=== PATIENT | female | born 1955 | race Caucasian/White ===

== ENCOUNTER 2016-06-03 17:05 | Emergency (ER) | payer OTHER ==
[~2016-06-03] VITALS: Ht 165.1 cm; Wt 54.0 kg
[~2016-06-03 17:05] MED LIST: AMLO5TAB96 PO; MACR100C PO; OMEP20TA PO; ZOCO5TAB PO; ZYRT10TA12 PO
[2016-06-03 17:17] VITALS: BP 138/82; PULSE 84; RESP 16; TEMP 98.3; O2SAT 98
--- NOTE | 2016-06-03 18:47 | RADHPO ---
EXAM DATE/TIME: 06/03/2016 18:33 [facility] COMPARISON: CHEST PA & LAT, August 21, 2012, 14:37. INDICATIONS : Right chest pain, difficulty breathing for 1 month MEDICAL HISTORY : None. SURGICAL HISTORY : None. ENCOUNTER: Initial ACUITY: 1 month PAIN SCORE: 6/10 LOCATION: Right chest FINDINGS: PA and lateral views of the chest demonstrate the lungs to be symmetrically aerated without evidence of mass, infiltrate or effusion. The cardiomediastinal contours are unremarkable. Osseous structure s are intact. CONCLUSION: No acute disease. Kai Yancey MD on June 03, 2016 at 18:45 Board Certified Radiologist. This report was verified electronically.
[2016-06-03] MEDS ORDERED: AMLO5TAB2 PO (18:49)
[2016-06-03] MEDS ORDERED: CETI10 PO (18:49)
[2016-06-03] MEDS ORDERED: MELO-1 PO (18:49)
[2016-06-03] MEDS ORDERED: SERT-132 PO (18:49)
[2016-06-03] MEDS ORDERED: OMEP40CA2 PO (18:49)
[2016-06-03] MEDS ORDERED: LOSA25TA PO (18:49)
[2016-06-03] MEDS ORDERED: SIMV40TA PO (18:49)
[2016-06-03] MEDS ORDERED: VENTAER INH (19:02)
[2016-06-03] MEDS ORDERED: PRED-503 PO (19:02)
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
== END 2016-06-03 20:59 | disposition home or self-care (01) ==
LOC: PHEFT 17:05
DX: R07.9 Chest pain, unspecified (principal); I10 Essential (primary) hypertension; E78.5 Hyperlipidemia, unspecified; F17.200 Nicotine dependence, unspecified, uncomplicated; Z88.5 Allergy status to narcotic agent; Z88.6 Allergy status to analgesic agent; Z79.899 Other long term (current) drug therapy
CPT/HCPCS: 71020; 99284

== ENCOUNTER 2016-09-14 19:21 | Emergency (ER) | payer OTHER ==
[~2016-09-14] VITALS: Ht 165.1 cm; Wt 55.0 kg
[~2016-09-14 19:21] MED LIST changes: +AMLO5TAB2 PO; -AMLO5TAB96 PO; +CETI10 PO; +LOSA25TA PO; -MACR100C PO; +MELO-1 PO; -OMEP20TA PO; +OMEP40CA2 PO; +PRED-503 PO; +SERT-132 PO; +SIMV40TA PO; +VENTAER INH; -ZOCO5TAB PO; -ZYRT10TA12 PO
[2016-09-14 19:26] VITALS: BP 143/78; PULSE 92; RESP 16; TEMP 98.5; O2SAT 99
--- NOTE | 2016-09-14 20:51 | PD ---
HPI Chief Complaint: Back/ Neck Pain or Injury Time Seen by Provider: 19:38 Travel History International Travel<30 days: No Contact w/Intl Traveler<30days: No Traveled to known affect area: No History of Present Illness HPI 60-year-old female complains of right flank pain remains abdominal pain. Patient states that the pain started about 4 months ago. Patient states the pain constant pain burning pain localized to right flank and right side abdomen. Patient denies any pain radiation. Patient denies any headache. Patient denies any chest pain or shortness of breath. Patient denies any nausea vomiting diarrhea. Patient denies any dysuria frequency. Patient denies any fever chills. Patient status post hysterectomy. Patient states that she drinks alcohol daily. Patient is a smoker. On a scale of 1-10 the pain is an 8. PFSH Past Medical History Asthma: Yes Depression: Yes High Cholesterol: Yes Diminished Hearing: No GERD: Yes Hypertension: Yes Immunizations Current: Yes Tetanus Vaccination: Unknown Influenza Vaccination: Yes Menopausal: Yes Past Surgical History Hysterectomy: Yes Tonsillectomy: Yes Social History Alcohol Use: Yes (2 beers daily) Tobacco Use: Yes (1.5 PPD) Substance Use: No Allergies-Medications (Allergen,Severity, Reaction): Coded Allergies: Aspirin (Verified Allergy, Severe, vomiting, stomach pain, 06/03/16) Vicodin (Verified Allergy, Intermediate, 06/03/16) Darvocet-N 100 (Verified Allergy, Unknown, 06/03/16) Percocet (Verified Adverse Reaction, Severe, VOMITING, 06/03/16) Percodan (Verified Adverse Reaction, Severe, VOMITING, 06/03/16) Ultram (Verified Adverse Reaction, Severe, VOMITING, 06/03/16) Reported Meds & Prescriptions Reported Meds & Active Scripts Active Ventolin Hfa 18 GM Inh (Albuterol Sulfate) 90 Mcg/Act Aer 2 Puff INH Q4-6H PRN Reported Simvastatin 40 Mg Tab 40 Mg PO HS Amlodipine (Amlodipine Besylate) 5 Mg Tab 5 Mg PO DAILY Meloxicam 15 Mg Tab 15 Mg PO DAILY Losartan (Losartan Potassium) 25 Mg Tab 25 Mg PO DAILY Sertraline (Sertraline HCl) 50 Mg Tab 50 Mg PO DAILY Cetirizine (Cetirizine HCl) 10 Mg Tab 10 Mg PO DAILY Omeprazole 40 Mg Cap 40 Mg PO DAILY Review of Systems General / Constitutional: No: Fever Eyes: No: Visual changes HENT: No: Headaches Cardiovascular: No: Chest Pain or Discomfort Respiratory: No: Shortness of Breath Gastrointestinal: Positive: Abdominal Pain Genitourinary: No: Dysuria Musculoskeletal: No: Pain Skin: No Rash Neurologic: No: Weakness Psychiatric: No: Depression Endocrine: No: Polydipsia Hematologic/Lymphatic: No: Easy Bruising Physical Exam Narrative GENERAL: Well-nourished, well-developed patient. SKIN: Focused skin assessment warm/dry. HEAD: Normocephalic. EYES: No scleral icterus. No injection or drainage. NECK: Supple, trachea midline. No JVD or lymphadenopathy. CARDIOVASCULAR: Regular rate and rhythm without murmurs, gallops, or rubs. RESPIRATORY: Breath sounds equal bilaterally. No accessory muscle use. GASTROINTESTINAL: Abdomen soft, nondistended. Patient has no tenderness on palpation on the abdomen including right upper quadrant right low quadrant or right flank area. No redness no heat no rash noted. MUSCULOSKELETAL: No cyanosis, or edema. BACK: Nontender without obvious deformity. No CVA tenderness. Neurologic exam normal. Data Data Last Documented VS Vital Signs Date Time Temp Pulse Resp B/P Pulse Ox O2 Delivery O2 Flow Rate FiO2 09/14/16 22:40 80 20 150/96 98 Room Air 09/14/16 19:26 98.5 Orders Complete Blood Count With Diff (09/14/16 20:46) Comprehensive Metabolic Panel (09/14/16 20:46) Lipase (09/14/16 20:46) Prothrombin Time / Inr (Pt) (09/14/16 20:46) Act Partial Throm Time (Ptt) (09/14/16 20:46) Urinalysis - C+S If Indicated (09/14/16 20:46) Ct Abd/Pel W Iv Contrast(Rout) (09/14/16 20:46) Iv Access Insert/Monitor (09/14/16 20:46) Iohexol 350 Inj (Omnipaque 350 Inj) (09/14/16 22:53) Labs Laboratory Tests Test 09/14/16 21:00 White Blood Count 7.1 TH/MM3 Red Blood Count 4.09 MIL/MM3 Hemoglobin 12.5 GM/DL Hematocrit 37.8 % Mean Corpuscular Volume 92.5 FL Mean Corpuscular Hemoglobin 30.6 PG Mean Corpuscular Hemoglobin 33.0 % Concent Red Cell Distribution Width 12.4 % Platelet Count 314 TH/MM3 Mean Platelet Volume 8.2 FL Neutrophils (%) (Auto) 63.1 % Lymphocytes (%) (Auto) 27.1 % Monocytes (%) (Auto) 7.5 % Eosinophils (%) (Auto) 0.9 % Basophils (%) (Auto) 1.4 % Neutrophils # (Auto) 4.5 TH/MM3 Lymphocytes # (Auto) 1.9 TH/MM3 Monocytes # (Auto) 0.5 TH/MM3 Eosinophils # (Auto) 0.1 TH/MM3 Basophils # (Auto) 0.1 TH/MM3 CBC Comment DIFF FINAL Differential Comment Prothrombin Time 10.7 SEC Prothromb Time International 1.0 RATIO Ratio Activated Partial 25.3 SEC Thromboplast Time Urine Color YELLOW Urine Turbidity CLEAR Urine pH 5.5 Urine Specific [place] 1.016 Urine Protein NEG mg/dL Urine Glucose (UA) NEG mg/dL Urine Ketones NEG mg/dL Urine Occult Blood NEG Urine Nitrite NEG Urine Bilirubin NEG Urine Leukocyte Esterase TRACE Urine RBC 0-3 /hpf Urine WBC 0-2 /hpf Urine Squamous Epithelial 0-5 /hpf Cells Microscopic Urinalysis Comment CULT NOT INDICATED Sodium Level 138 MEQ/L Potassium Level 3.9 MEQ/L Chloride Level 107 MEQ/L Carbon Dioxide Level 23.1 MEQ/L Anion Gap 8 MEQ/L Blood Urea Nitrogen 15 MG/DL Creatinine 0.57 MG/DL Estimat Glomerular Filtration 107 ML/MIN Rate Random Glucose 91 MG/DL Calcium Level 9.1 MG/DL Total Bilirubin 0.3 MG/DL Aspartate Amino Transf 13 U/L (AST/SGOT) Alanine Aminotransferase 16 U/L (ALT/SGPT) Alkaline Phosphatase 62 U/L Total Protein 7.0 GM/DL Albumin 3.7 GM/DL Lipase 244 U/L [facility] Medical Decision Making Medical Screen Exam Complete: Yes Emergency Medical Condition: Yes Interpretation(s) 22:05 PM. CBC within normal limit. CMP within normal limit. UA is negative. 23:29 PM. Last Impressions Abdomen/Pelvis CT 09/14/162045 Signed Impressions: Service Date/Time: Wednesday, September 14, 2016 22:34 - CONCLUSION: 1. Nonspecific gastric wall thickening. Nonemergent direct visualization with endoscopy recommended. 2. No other acute abnormalities are demonstrated. Atherosclerotic aorta and degenerative changes of the spine and hips are again noted. Wojciech Hicks MD Differential Diagnosis Differential diagnosis including musculoskeletal, colitis, cholecystitis, nephrolithiasis, pyelonephritis, neuralgia. Narrative Course 60-year-old female with right flank pain and right-sided abdominal pain. Patient states the pain started 4 months ago and has been persistent since then. Diagnosis Primary Impression: Abdominal pain Qualified Code: R10.11 - Right upper quadrant abdominal pain Patient Instructions: General Instructions Additional Instructions: Tylenol as needed for pain. Follow-up with personal physician and GI specialist. Return if worse. Med/Other Pt SpecificInfo: No Change to Meds Disposition: 01 DISCHARGE HOME Condition: Stable Milton Candelaria MD Sep 14, 2016 20:51
[2016-09-14 21:13] LABS: BLOOD, URINE NEG (NEG); GLUCOSE,URINE NEG (NEG); KETONE, URINE NEG (NEG); NITRITE,URINE NEG (NEG); PH, URINE 5.5 (5.0-8.5)
[2016-09-14 21:16] LABS: URINE COLOR YELLOW (YELLW/STRAW)
[2016-09-14 21:17] LABS: RBC, URINE 0-3 /hpf (0-3); WBC, URINE 0-2 /hpf (0-5)
[2016-09-14 21:18] LABS: COMMENT (UR) CULT NOT INDICATED; CULTURE IF INDICATED CULT NOT INDICATED; SQUAMOUS EPITHELIAL CELL URINE 0-5 /hpf (0-5)
[2016-09-14 21:34] LABS: CHLORIDE 107 MEQ/L (98-107); POTASSIUM 3.9 MEQ/L (3.5-5.1); SODIUM (NA) 138 MEQ/L (136-145)
[2016-09-14 21:35] LABS: AUTOMATED NEUTROPHIL # 4.5 TH/MM3 (1.8-7.7); BASOPHIL # 0.1 TH/MM3 (0-0.2); BASOPHIL % 1.4 % (0.0-2.0); EOSINOPHIL # 0.1 TH/MM3 (0-0.4); EOSINOPHIL % 0.9 % (0.0-4.0); HEMATOCRIT 37.8 % (35.0-46.0); HEMO FLAGS DIFF FINAL; LYMPH % 27.1 % (9.0-44.0); LYMPHOCYTE # 1.9 TH/MM3 (1.0-4.8); MEAN CELL VOLUME 92.5 FL (80.0-100.0); MEAN CORPUSCULAR HEMOGLOBIN 30.6 PG (27.0-34.0); MONO % 7.5 % (0.0-8.0); NEUT % 63.1 % (16.0-70.0); PLATELET COUNT 314 TH/MM3 (150-450); RED BLOOD COUNT 4.09 MIL/MM3 (4.00-5.30); RED CELL DISTRIBUTION WIDTH 12.4 % (11.6-17.2); WHITE BLOOD COUNT 7.1 TH/MM3 (4.0-11.0)
[2016-09-14 21:38] LABS: ANION GAP 8 MEQ/L (5-15); BICARBONATE 23.1 MEQ/L (21.0-32.0); BLOOD UREA NITROGEN 15 MG/DL (7-18)
[2016-09-14 21:41] LABS: ALT (GPT) 16 U/L (10-53); AST (GOT) 13 U/L (15-37); GLOMERULAR FILTRATION RATE 107 ML/MIN (>89)
[2016-09-14 21:43] LABS: TOTAL BILIRUBIN ADULT 0.3 MG/DL (0.2-1.0)
[2016-09-14 21:44] LABS: ALKALINE PHOSPHATASE 62 U/L (45-117)
[2016-09-14 21:45] LABS: APTT (PATIENT) 25.3 SEC (24.3-30.1); PROTHROMBIN TIME - PATIENT 10.7 SEC (9.8-11.6)
[2016-09-14 22:40] VITALS: BP 150/96; PULSE 80; RESP 20; O2SAT 98
[2016-09-14] MEDS ORDERED: IOHEXOL 350 MG/ML 10 ML VIAL (for RAD DIAG) IV ONE (22:53)
--- NOTE | 2016-09-14 23:13 | RADRPT ---
EXAM DATE/TIME: 09/14/2016 22:34 [facility] COMPARISON: CT ABDOMEN & PELVIS W/O CONTRAST, January 03, 2014, 23:07. CT ABDOMEN & PELVIS W CONTRAST, November 29, 2012, 12:24. INDICATIONS : Right flank pain. IV CONTRAST: 100 cc Omnipaque 350 (iohexol) IV ORAL CONTRAST: No oral contrast ingested. RADIATION DOSE: 5.63 CTDIvol (mGy) MEDICAL HISTORY : Gastroesophageal reflux disease. Hypertension. SURGICAL HISTORY : Hysterectomy. ENCOUNTER: Initial ACUITY: 4 - 6 months PAIN SCALE: 8/10 LOCATION: Right flank TECHNIQUE: Volumetric scanning of the abdomen and pelvis was performed. Using automated exposure control and ad justment of the mA and/or kV according to patient size, radiation dose was kept as low as reasonably achievable to obtain optimal diagnostic quality images. DICOM format image data is available electro nically for review and comparison. FINDINGS: LOWER LUNGS: The visualized lower lungs are clear. LIVER: Homogeneous density without lesion. There is no dilation of the biliary tree. No calcified gallston es. SPLEEN: Normal size without lesion. PANCREAS: Within normal limits. KIDNEYS: Normal in size and shape. There is no mass, stone or hydronephrosis. ADRENAL GLANDS: Within normal limits. VASCULAR: There is atherosclerosis of the abdominal aorta. No aneurysm. BOWEL/MESENTERY: Marked gastric wall thickening seen. No perceptible acute inflammatory changes. Small and large bowel within normal limits. ABDOMINAL WALL: Within normal limits. RETROPERITONEUM: There is no lymphadenopathy. BLADDER: No wall thickening or mass. REPRODUCTIVE: Within normal limits. INGUINAL: There is no lymphadenopathy or hernia. MUSCULOSKELETAL: No acute bony abnormality demonstrated. There are degenerative changes of the spine and both hips. CONCLUSION: 1. Nonspecific gastric wall thickening. Nonemergent direct visualization with endoscopy recommended. 2. No other acute abnormalities are demonstrated. Atherosclerotic aorta and degenerative changes of t he spine and hips are again noted. Wojciech Hicks MD on September 14, 2016 at 23:08 Board Certified Radiologist. This report was verified electronically.
[2016-09-14 23:41] VITALS: BP 145/88
== END 2016-09-14 23:41 | disposition home or self-care (01) ==
LOC: PHEFT 19:21
DX: R10.11 Right upper quadrant pain (principal); I10 Essential (primary) hypertension; E78.00 Pure hypercholesterolemia, unspecified; F17.200 Nicotine dependence, unspecified, uncomplicated; Z87.09 Personal history of other diseases of the respiratory system; Z86.59 Personal history of other mental and behavioral disorders; Z87.19 Personal history of other diseases of the digestive system
CPT/HCPCS: 74177; 80053; 81001; 83690; 85025; 85610; 85730; 99285; Q9967

== ENCOUNTER 2017-08-16 12:42 | Inpatient (IN) | payer OTHER ==
[2017-08-16] VITALS (9 sets, daily range): BP systolic 124–143; BP diastolic 68–83; PULSE 90–105; RESP 16–20; TEMP 98.7–101; O2SAT 96–99
[~2017-08-16 12:42] MED LIST changes: -MELO-1 PO; +MELO15TA20 PO; -PRED-503 PO
[2017-08-16] MEDS ORDERED: RANI300T PO (13:30)
[2017-08-16] MEDS ORDERED: OMEGCAP PO (13:30)
[2017-08-16] MEDS ORDERED: MULT-65 PO (13:30)
--- NOTE | 2017-08-16 14:08 | PD ---
HPI Chief Complaint: Headache Time Seen by Provider: 13:55 Travel History International Travel<30 days: No Contact w/Intl Traveler<30days: No Traveled to known affect area: No History of Present Illness HPI This 61-year-old female says she has not been feeling well since yesterday. She woke up with a headache. She says she is aching all over. She has a slight cough. She has a chronic cough and is a smoker. She has not had dysuria. There is been no vomiting or diarrhea. She says that all of her joints are aching. The headache she is having is fairly diffuse. She is not prone to headaches. She is not aware of fever. PFSH Past Medical History Arthritis: Yes Asthma: Yes Depression: Yes High Cholesterol: Yes Diminished Hearing: No GERD: Yes Hypertension: Yes Immunizations Current: Yes Influenza Vaccination: Yes ?: Not Menopausal: Yes Past Surgical History Hysterectomy: Yes Tonsillectomy: Yes Social History Alcohol Use: Yes (6 BEERS DAILY) Tobacco Use: Yes (1.5 PPD) Substance Use: No Allergies-Medications (Allergen,Severity, Reaction): Coded Allergies: aspirin (Verified Allergy, Severe, vomiting, stomach pain, 08/16/17) hydrocodone (Verified Allergy, Intermediate, 08/16/17) propoxyphene (Verified Allergy, Unknown, 08/16/17) acetaminophen (Verified Adverse Reaction, Severe, VOMITING, 08/16/17) oxycodone (Verified Adverse Reaction, Severe, VOMITING, 08/16/17) tramadol (Verified Adverse Reaction, Severe, VOMITING, 08/16/17) Reported Meds & Prescriptions Reported Meds & Active Scripts Active Ventolin Hfa 18 GM Inh (Albuterol Sulfate) 90 Mcg/Act Aer 2 Puff INH Q4-6H PRN Reported Ranitidine (Ranitidine HCl) 300 Mg Tab 300 Mg PO HS Multi-Vitamin Daily (Multiple Vitamin) 1 Tab Tab 1 Tab PO DAILY [place]-3 Fish Oil/Vitamin (Fish Oil-Cholecalciferol) 1,000-1,000 Mg Cap 1 Cap PO DAILY Simvastatin 40 Mg Tab 40 Mg PO HS Amlodipine (Amlodipine Besylate) 5 Mg Tab 5 Mg PO DAILY Meloxicam 15 Mg Tab 15 Mg PO DAILY Losartan (Losartan Potassium) 25 Mg Tab 25 Mg PO DAILY Sertraline (Sertraline HCl) 50 Mg Tab 100 Mg PO DAILY Cetirizine (Cetirizine HCl) 10 Mg Tab 10 Mg PO DAILY Omeprazole 40 Mg Cap 40 Mg PO DAILY Review of Systems Except as stated in HPI: all other systems reviewed are Neg General / Constitutional: No: Fever Eyes: No: Diploplia HENT: No: Headaches Cardiovascular: No: Chest Pain or Discomfort, Palpitations Respiratory: Positive: Cough, No: Shortness of Breath, Wheezing Gastrointestinal: No: Nausea, Vomiting Genitourinary: No: Urgency, Frequency Musculoskeletal: Positive: Myalgias, Arthralgias Skin: No Rash Neurologic: Positive: Weakness Psychiatric: No: Anxiety, Depression Endocrine: No: Heat Intolerance, Cold Intolerance Hematologic/Lymphatic: No: Easy Bruising Physical Exam Narrative GENERAL: Thin female complaining of pain. Her temp is 101 SKIN: Focused skin assessment warm/dry. HEAD: Atraumatic. Normocephalic. EYES: Pupils equal and round. No scleral icterus. No injection or drainage. ENT: No nasal bleeding or discharge. Mucous membranes pink and moist. NECK: Trachea midline. No JVD. Her neck is supple. She is able to put her chin on her chest without inducing any pain CARDIOVASCULAR: Regular rate and rhythm. No murmur appreciated. RESPIRATORY: No accessory muscle use. There are scattered rhonchi. Breath sounds equal bilaterally. GASTROINTESTINAL: Abdomen soft, non-tender, nondistended. Hepatic and splenic margins not palpable. MUSCULOSKELETAL: No obvious deformities. No clubbing. No cyanosis. No edema. NEUROLOGICAL: Awake and alert. No obvious cranial nerve deficits. Motor grossly within normal limits. Normal speech. PSYCHIATRIC: Appropriate mood and affect; insight and judgment normal. Data Data Last Documented VS Vital Signs Date Time Temp Pulse Resp B/P (MAP) Pulse Ox O2 Delivery O2 Flow Rate FiO2 08/16/17 14:37 18 97 Room Air 08/16/17 14:36 101.0 102 Orders Orders Sepsis Workup Initiated (08/16/17 ) Complete Blood Count With Diff (08/16/17 14:03) Comprehensive Metabolic Panel (08/16/17 14:03) Prothrombin Time / Inr (Pt) (08/16/17 14:03) Act Partial Throm Time (Ptt) (08/16/17 14:03) Lactic Acid Sepsis Protocol (08/16/17 14:03) Urinalysis - C+S If Indicated (08/16/17 14:03) Influenzae A/B Antigen (08/16/17 14:03) Blood Culture (08/16/17 14:03) Chest, Single Ap (08/16/17 14:03) Blood Glucose (08/16/17 14:03) Ecg Monitoring (08/16/17 14:03) Iv Access Insert/Monitor (08/16/17 14:03) Oximetry (08/16/17 14:03) Oxygen Administration (08/16/17 14:03) Acetaminophen (Tylenol) (08/16/17 14:15) Sodium Chlor 0.9% 1000 Ml Inj (Ns 1000 M (08/16/17 14:15) Ct Brain W/O Iv Contrast(Rout) (08/16/17 ) Labs Laboratory Tests Test 08/16/17 14:10 08/16/17 14:15 08/16/17 14:20 MDM Medical Decision Making Medical Screen Exam Complete: Yes Emergency Medical Condition: Yes Medical Record Reviewed: Yes Differential Diagnosis Differential includes pneumonia, UTI, sepsis Narrative Course Workup has been ordered. Acetaminophen as indicated as an allergy but this patient says she is not allergic to acetaminophen in fact she takes it periodically. Chest x-ray shows a patchy opacity in the left upper lung field consistent with possible pneumonia. It is recommended that the patient does not have symptoms of pneumonia that CT could be helpful. Patient does have fever and cough consistent with pneumonia Sepsis Criteria SIRS Criteria (2 or more): Temp > 100.9 or < 96.8, Heart rate over 90 Sepsis Criteria (SIRS+source): Infect source susp/known Diagnosis Primary Impression: Pneumonia Chris Morales MD Aug 16, 2017 14:08
[2017-08-16] MEDS ORDERED: ACETAMINOPHEN 325 MG TAB PO ONE (14:15)
[2017-08-16] MEDS ORDERED: SODIUM CHLOR 0.9% 1000 ML INJ 1,000 ML IV ONE (14:15)
--- NOTE | 2017-08-16 14:48 | RADRPT ---
EXAM DATE: 08/16/2017 2:41 PM EDT AGE/SEX: 61 years / Female INDICATIONS: Short of breath and cough CLINICAL DATA: This is the patient's initial encounter. Patient reports that signs and symptoms have been present for 2 days and indicates a pain score of 3/10. MEDICAL/SURGICAL HISTORY: Hypertension. Asthma. Gastroesophageal reflux disease. None. COMPARISON: [facility], CHEST SINGLE AP, 11/29/2012. . FINDINGS: There is patchy opacity within the left upper lung field consistent with possible pneumonia. Clinical correlation is recommended. If the patient has no symptoms suggestive of pneumonia CT of the chest m ay be helpful for further evaluation. The heart is normal. The pulmonary vascular pattern is also nor mal. The right lung is clear. CONCLUSION: Patchy opacity within the left upper lung field consistent with possible pneumonia. Clinical correlat ion is recommended. If the patient has no symptoms suggestive of pneumonia CT of the chest may be hel pful for further evaluation. Electronically signed by: Kai Yancey MD 08/16/2017 2:46 PM EDT
[2017-08-16 14:49] LABS: BLOOD, URINE SMALL (NEG); GLUCOSE,URINE NEG (NEG); KETONE, URINE TRACE mg/dL (NEG); NITRITE,URINE NEG (NEG); URINE COLOR YELLOW (YELLW/STRAW); URINE LEUKOCYTE ESTERASE NEG (NEG)
--- NOTE | 2017-08-16 14:54 | RADRPT ---
EXAM DATE: 08/16/2017 2:50 PM EDT AGE/SEX: 61 years / Female INDICATIONS: Cephalgia for two days. CLINICAL DATA: This is the patient's initial encounter. Patient reports that signs and symptoms have been present for 2 days and indicates a pain score of 10/10. MEDICAL/SURGICAL HISTORY: Hypertension. Gastroesophageal reflux disease. Tonsillectomy. Hysterect naseem. RADIATION DOSE: 46.84 CTDI (mGy) COMPARISON: No prior exams available for comparison. TECHNIQUE: CT of the head without contrast. Using automated exposure control and adjustment of the mA and/or kV according to patient size, radiation dose was kept as low as reasonably achievable to ob tain optimal diagnostic quality images. FINDINGS: Cerebrum: The ventricles are normal for age. No evidence of midline shift, mass lesion, hemorrhage or acute infarction. No extraaxial fluid collections are seen. Posterior Fossa: The cerebellum and brainstem are intact. The 4th ventricle is midline. The cerebe llopontine angle is unremarkable. Extracranial: The visualized portion of the orbits is intact. Skull: The calvaria is intact. No evidence of skull fracture. CONCLUSION: 1. Negative CT Head non contrast. Electronically signed by: Kai Yancey MD 08/16/2017 2:53 PM EDT
[2017-08-16 14:59] LABS: BILIRUBIN, URINE NEG (NEG)
[2017-08-16] MEDS ORDERED: AZITHROMYCIN INJ 500 MG in SODIUM CHLOR 0.9% 250 ML INJ 250 ML IV STA (15:00)
[2017-08-16] MEDS ORDERED: cefTRIAXone INJ 2,000 MG in SODIUM CHLORIDE 0.9% INJ 100 ML IV STA (15:00)
[2017-08-16 15:04] LABS: INTERNATIONAL NORMALIZED RATIO 1.1 RATIO; PROTHROMBIN TIME - PATIENT 10.7 SEC (9.8-11.6)
[2017-08-16 15:06] LABS: BACTERIA, URINE OCC /hpf; MUCUS URINE FEW /lpf (OCC); RBC, URINE 0-3 /hpf (0-3); SQUAMOUS EPITHELIAL CELL URINE 0-5 /hpf (0-5)
[2017-08-16 15:13] LABS: HEMATOCRIT 33.5 % (35.0-46.0); HEMOGLOBIN 11.8 GM/DL (11.6-15.3); MEAN CORPUSCULAR HEMOGLOBIN 31.3 PG (27.0-34.0); MEAN CORPUSCULAR HGB CONC 35.2 % (32.0-36.0); MEAN PLATELET VOLUME 9.4 FL (7.0-11.0); PLATELET COUNT 229 TH/MM3 (150-450); RED BLOOD COUNT 3.76 MIL/MM3 (4.00-5.30); WHITE BLOOD COUNT 24.4 TH/MM3 (4.0-11.0)
--- NOTE | 2017-08-16 15:47 | PD ---
Data Data Last Documented VS Vital Signs Date Time Temp Pulse Resp B/P (MAP) Pulse Ox O2 Delivery O2 Flow Rate FiO2 08/16/17 17:51 92 18 140/68 (92) 97 Room Air 08/16/17 16:10 98.7 Orders Orders Sepsis Workup Initiated (08/16/17 ) Complete Blood Count With Diff (08/16/17 14:03) Comprehensive Metabolic Panel (08/16/17 14:03) Prothrombin Time / Inr (Pt) (08/16/17 14:03) Act Partial Throm Time (Ptt) (08/16/17 14:03) Lactic Acid Sepsis Protocol (08/16/17 14:03) Urinalysis - C+S If Indicated (08/16/17 14:03) Influenzae A/B Antigen (08/16/17 14:03) Blood Culture (08/16/17 14:03) Chest, Single Ap (08/16/17 14:03) Blood Glucose (08/16/17 14:03) Ecg Monitoring (08/16/17 14:03) Iv Access Insert/Monitor (08/16/17 14:03) Oximetry (08/16/17 14:03) Oxygen Administration (08/16/17 14:03) Acetaminophen (Tylenol) (08/16/17 14:15) Sodium Chlor 0.9% 1000 Ml Inj (Ns 1000 M (08/16/17 14:15) Ct Brain W/O Iv Contrast(Rout) (08/16/17 ) Ceftriaxone Inj (Rocephin Inj) (08/16/17 15:00) Azithromycin Inj (Zithromax Inj) (08/16/17 15:00) Urine Culture (08/16/17 14:10) I-Stat Profile (08/16/17 14:15) Admit Order (Ed Use Only) (08/16/17 ) Labs Laboratory Tests Test 08/16/17 14:10 08/16/17 14:15 08/16/17 14:20 Urine Color YELLOW Urine Turbidity CLEAR Urine pH 6.0 Urine Specific [place] 1.025 Urine Protein TRACE mg/dL Urine Glucose (UA) NEG mg/dL Urine Ketones TRACE mg/dL Urine Occult Blood SMALL Urine Nitrite NEG Urine Bilirubin NEG Urine Urobilinogen 1.0 MG/DL Urine Leukocyte Esterase NEG Urine RBC 0-3 /hpf Urine WBC 3-5 /hpf Urine Squamous Epithelial Cells 0-5 /hpf Urine Bacteria OCC /hpf Urine Mucus FEW /lpf Microscopic Urinalysis Comment CATH-CULTURE IND White Blood Count 24.4 TH/MM3 Red Blood Count 3.76 MIL/MM3 Hemoglobin 11.8 GM/DL Bedside Hemoglobin G/DL Hematocrit 33.5 % Bedside Hematocrit % Mean Corpuscular Volume 89.0 FL Mean Corpuscular Hemoglobin 31.3 PG Mean Corpuscular Hemoglobin Concent 35.2 % Red Cell Distribution Width 14.0 % Platelet Count 229 TH/MM3 Mean Platelet Volume 9.4 FL CBC Comment AUTO DIFF Differential Total Cells Counted 100 Neutrophils % (Manual) 89 % Band Neutrophils % 8 % Lymphocytes % 2 % Monocytes % 1 % Neutrophils # (Manual) 23.7 TH/MM3 Differential Comment FINAL DIFF MANUAL Platelet Estimate NORMAL Platelet Morphology Comment NORMAL Tear Drop Cells 1+ Prothrombin Time 10.7 SEC Prothromb Time International Ratio 1.1 RATIO Activated Partial Thromboplast Time 29.9 SEC Bedside Sodium 128 MMOL/L Blood Urea Nitrogen 11 MG/DL Creatinine 0.63 MG/DL Random Glucose 86 MG/DL Total Protein 7.5 GM/DL Albumin 3.5 GM/DL Calcium Level 8.6 MG/DL Alkaline Phosphatase 90 U/L Aspartate Amino Transf (AST/SGOT) 12 U/L Alanine Aminotransferase (ALT/SGPT) 16 U/L Total Bilirubin 0.7 MG/DL Sodium Level 129 MEQ/L Potassium Level 4.0 MEQ/L Chloride Level 95 MEQ/L Carbon Dioxide Level 22.0 MEQ/L Bedside Potassium 3.9 MMOL/L Bedside Chloride 93 MMOL/L Anion Gap 12 MEQ/L Bedside Blood Urea Nitrogen 12 MG/DL Bedside Creatinine 0.4 MG/DL Estimat Glomerular Filtration Rate 95 ML/MIN Bedside Glucose 88 MG/DL Lactic Acid Level 1.5 mmol/L [facility] Supervised Visit with MARYBETH: No Narrative Course Patient CARE assume from Dr. Chen at 1500, this is 61-year-old smoking female presents emergency department for evaluation of headache, noted to be febrile and tachycardic she does have evidence of left upper lobe pneumonia. Awaiting chemistry I have added an i-STAT panel for this patient as our chemistry analyzer is currently malfunctioning. Unfortunately this will delay her lactic acid result. Blood cultures and antibiotics have been ordered prior to my arrival. Her white blood cell count is significantly elevated and the patient certainly meets SIRS criteria. My first examination of this patient at 1545, I advised the patient that given her white blood cell count her vital signs that she is indeed septic, I highly recommended admission to the hospital. She has antibiotics infusing at this time. She does not appear toxic and states that she has a dog to take care of at home. I highly advised her to find someone to take care of the dog and for her to be admitted to the hospital. She stated that if her chemistries are normal she would like to be released from the hospital. I then informed her of the risks of signing out AGAINST MEDICAL ADVICE including and permanent disability and worsening of infection and spread of infection. She verbalized understanding and agreement to these risks and still I was able to convince her to wait for her chemistry results. Ultimately the patient decided to stay in the hospital, discussed with Dr. Ashby for admission. Diagnosis Primary Impression: Sepsis Additional Impression: Pneumonia Referrals: [facility] Patient Instructions: Community Acquired Pneumonia (DC), General Instructions, How to Stop Smoking (DC), Sepsis (DC) Additional Instruction: Please return to the emergency department at your earliest convenience for consideration of admission to the hospital for pneumonia with sepsis. Med/Other Pt SpecificInfo: Prescription(s) given Scripts Albuterol 8.5 GM Inh (Proair Hfa 8.5 GM Inh) 90 Mcg/Act Aer 2 PUFF INH Q4-6H Y for SHORTNESS OF BREATH, #1 INHALER 0 Refills 108 mcg/actuation Prov: Kai Alvarado MD 08/16/17 Cephalexin (Keflex) 500 Mg Cap 500 MG PO Q6H for Infection for 7 Days, #28 CAP 0 Refills Prov: Kai Alvarado MD 08/16/17 Azithromycin (Azithromycin) 250 Mg Tab 250 MG PO DIRECTED for Infection, #6 TAB 0 Refills Take 2 tabs (500 mg) on day 1 then 1 tab daily x 4 days. Prov: Kai Alvarado MD 08/16/17 Disposition: 07 AGAINST MEDICAL ADVICE Condition: Stable Kai Alvarado MD Aug 16, 2017 15:47
[2017-08-16 15:52] LABS: BANDS 8 % (0-6); LYMPHOCYTES 2 % (9-44); MONOCYTES 1 % (0-8); NEUTROPHIL # MANUAL DIFF 23.7 TH/MM3 (1.8-7.7); POLYS (SEG NEUTROPHILS) 89 % (16-70)
[2017-08-16 15:53] LABS: TEARDROP RBCS 1+ (NORMAL)
[2017-08-16 16:38] LABS: ALKALINE PHOSPHATASE 90 U/L (45-117); TOTAL BILIRUBIN ADULT 0.7 MG/DL (0.2-1.0); TOTAL PROTEIN 7.5 GM/DL (6.4-8.2)
[2017-08-16 16:41] LABS: ALBUMIN 3.5 GM/DL (3.4-5.0); ALT (GPT) 16 U/L (10-53); AST (GOT) 12 U/L (15-37); BLOOD UREA NITROGEN 11 MG/DL (7-18); CALCIUM 8.6 MG/DL (8.5-10.1); CHLORIDE 95 MEQ/L (98-107); CREATININE 0.63 MG/DL (0.50-1.00); GLOMERULAR FILTRATION RATE 95 ML/MIN (>89); GLUCOSE,RANDOM 86 MG/DL (74-106); SODIUM (NA) 129 MEQ/L (136-145)
[2017-08-16] MEDS ORDERED: CEPH-460 PO (17:02)
[2017-08-16] MEDS ORDERED: AZIT250T3 PO (17:02)
[2017-08-16] MEDS ORDERED: ALBUAER3 INH (17:03)
[2017-08-16] MEDS ORDERED: NALOXONE HCL 0.4 MG/ML AMP IV PUSH PRN (18:00)
[2017-08-16] MEDS ORDERED: MAGNESIUM HYDROXIDE SUSP 30 ML CUP PO PRN (18:00)
[2017-08-16] MEDS ORDERED: LACTULOSE SYRUP 20 GM/30 ML CUP PO PRN (18:00)
[2017-08-16] MEDS ORDERED: METOCLOPRAMIDE HCL 10 MG/2 ML VIAL IV PUSH PRN (18:00)
[2017-08-16] MEDS ORDERED: SENNOSIDES 8.6 MG TAB PO PRN (18:00)
[2017-08-16] MEDS ORDERED: SODIUM CHLORIDE 0.9% FLUSH 10 ML FLUSH IV FLUSH PRN (18:00)
[2017-08-16] MEDS ORDERED: BISACODYL 10 MG SUPP RECTAL PRN (18:00)
[2017-08-16] MEDS ORDERED: RESP: ALBUTEROL 2.5 MG/IPRATROPIUM 0.5 MG NEB (PRN) NEB (18:15)
[2017-08-16] MEDS ORDERED: LORazepam 2 MG TAB PO PRN (18:30)
[2017-08-16] MEDS ORDERED: ENALAPRILAT 1.25 MG/ML VIAL IV PUSH PRN (18:30)
[2017-08-16] MEDS ORDERED: LORazepam 1 MG TAB PO PRN (18:30)
[2017-08-16] MEDS ORDERED: LORazepam 2 MG/ML VIAL IV PUSH PRN ×4 (18:30)
[2017-08-16] MEDS ORDERED: FLUMAZENIL 0.5 MG/5 ML VIAL IV PUSH PRN (18:30)
[2017-08-16] MEDS: MULTIVITAMINS/MINERALS THERAPEUTIC TAB PO SCH (18:30)
[2017-08-16] MEDS: THIAMINE HCL 100 MG TAB PO SCH ×2 (18:30→22:35)
[2017-08-16] MEDS ORDERED: THIAMINE HCL 100 MG TAB PO ONE (18:30)
[2017-08-16] MEDS ORDERED: ACETAMINOPHEN/CODEINE 300 MG/30 MG TAB PO ONE (18:30)
--- NOTE | 2017-08-16 18:31 | HHI.HP ---
[facility]ician Wojciech Steinberg MD Admission Diagnosis Sepsis, Pneumonia Diagnoses: Travel History International Travel<30 Days: No Contact w/Intl Traveler <30 Da: No Traveled to Known Affected Are: No History of Present Illness Patient is a 61-year-old female with past medical history of hypertension, hyperlipidemia, asthma, COPD presented to the emergency room with complaints of severe headache which started yesterday. She states that this morning she also started having body aches, pain in her shoulders blades chills. She did not take a temperature at home. She was told when she was in the emergency room that she had a fever. She states her headache is worse with coughing. 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 She denies any recent hospitalizations. She states that she usually has a chronic cough but she is a smoker but has not noted an increase in her cough. Admits to dry heaves. Denies any burning with urination or increased urinary frequency. Denies any abdominal pain. Patient is hopeful to go home soon. She tells me that she is not allergic to Tylenol however she takes Tylenol #3 usually whenever she is in pain. Review of Systems Except as stated in HPI: all other systems reviewed are Neg Past Family Social History Past Medical History hypertension, hyperlipidemia, asthma, COPD Past Surgical History Hysterectomy, tonsillectomy Reported Medications Reported Meds & Active Scripts Active Proair Hfa 8.5 GM Inh (Albuterol Sulfate) 90 Mcg/Act Aer 2 Puff INH Q4-6H PRN 108 mcg/actuation Keflex (Cephalexin) 500 Mg Cap 500 Mg PO Q6H 7 Days Azithromycin 250 Mg Tab 250 Mg PO DIRECTED Take 2 tabs (500 mg) on day 1 then 1 tab daily x 4 days. Ventolin Hfa 18 GM Inh (Albuterol Sulfate) 90 Mcg/Act Aer 2 Puff INH Q4-6H PRN Reported Ranitidine (Ranitidine HCl) 300 Mg Tab 300 Mg PO HS Multi-Vitamin Daily (Multiple Vitamin) 1 Tab Tab 1 Tab PO DAILY [place]-3 Fish Oil/Vitamin (Fish Oil-Cholecalciferol) 1,000-1,000 Mg Cap 1 Cap PO DAILY Simvastatin 40 Mg Tab 40 Mg PO HS Amlodipine (Amlodipine Besylate) 5 Mg Tab 5 Mg PO DAILY Meloxicam 15 Mg Tab 15 Mg PO DAILY Losartan (Losartan Potassium) 25 Mg Tab 25 Mg PO DAILY Sertraline (Sertraline HCl) 50 Mg Tab 100 Mg PO DAILY Cetirizine (Cetirizine HCl) 10 Mg Tab 10 Mg PO DAILY Omeprazole 40 Mg Cap 40 Mg PO DAILY Allergies: Coded Allergies: aspirin (Verified Allergy, Severe, vomiting, stomach pain, 08/16/17) hydrocodone (Verified Allergy, Intermediate, 08/16/17) propoxyphene (Verified Allergy, Unknown, 08/16/17) oxycodone (Verified Adverse Reaction, Severe, VOMITING, 08/16/17) tramadol (Verified Adverse Reaction, Severe, VOMITING, 08/16/17) Family History Patient states that her sisters of metastatic cancer. Her mom had her thyroid removed however she does not know why. Social History Admits to smoking a pack and a half daily since the age of 16. She states that she has no intention of quitting. Admits to drinking a sixpack daily after work , denies any withdrawal symptoms or prior seizures. Denies illegal drug Physical Exam Vital Signs Vital Signs Date Time Temp Pulse Resp B/P (MAP) Pulse Ox O2 Delivery O2 Flow Rate FiO2 08/16/17 17:51 92 18 140/68 (92) 97 Room Air 08/16/17 16:10 98.7 90 16 124/76 (92) 97 Room Air 08/16/17 15:12 100.2 97 18 143/82 (102) 97 Room Air 08/16/17 15:00 100.2 97 18 142/82 (102) 97 Room Air 08/16/17 14:37 18 97 Room Air 08/16/17 14:37 97 Room Air 08/16/17 14:36 101.0 102 18 143/83 (103) 97 Room Air 08/16/17 12:57 99.0 105 20 137/76 (96) 99 Physical Exam GENERAL: thin lady, laying in bed with covers over herself per HEAD: Atraumatic. Normocephalic. No temporal or scalp tenderness. EYES: Pupils equal round and reactive. Extraocular motions intact. No scleral icterus. No injection or drainage. ENT: Nose without drainage. Throat without erythema, tonsillar hypertrophy or exudate. Uvula midline. Airway patent. NECK: Trachea midline. No JVD or lymphadenopathy. Supple, nontender, no meningeal signs that I could elicit. She is able to move around in bed for me to examine her with no difficulties. CARDIOVASCULAR: Regular rate and rhythm without murmurs. RESPIRATORY: Clear to auscultation. Somewhat decreased breath sounds however no wheezes GASTROINTESTINAL: Abdomen soft, non-tender, nondistended. No guarding. MUSCULOSKELETAL: Extremities without edema. Moves all extremities with no difficulty. 5 out of 5 muscle strength in all muscle groups. NEUROLOGICAL: Awake and alert. Cranial nerves II through XII intact. Normal speech. Laboratory Laboratory Tests Test 08/16/17 14:10 08/16/17 14:15 08/16/17 14:20 Urine Color YELLOW Urine Turbidity CLEAR Urine pH 6.0 Urine Specific [place] 1.025 Urine Protein TRACE Urine Glucose (UA) NEG Urine Ketones TRACE Urine Occult Blood SMALL Urine Nitrite NEG Urine Bilirubin NEG Urine Urobilinogen 1.0 Urine Leukocyte Esterase NEG Urine RBC 0-3 Urine WBC 3-5 Urine Squamous Epithelial Cells 0-5 Urine Bacteria OCC Urine Mucus FEW Microscopic Urinalysis Comment CATH-CULTURE IND White Blood Count 24.4 Red Blood Count 3.76 Hemoglobin 11.8 Bedside Hemoglobin Hematocrit 33.5 Bedside Hematocrit Mean Corpuscular Volume 89.0 Mean Corpuscular Hemoglobin 31.3 Mean Corpuscular Hemoglobin Concent 35.2 Red Cell Distribution Width 14.0 Platelet Count 229 Mean Platelet Volume 9.4 CBC Comment AUTO DIFF Differential Total Cells Counted 100 Neutrophils % (Manual) 89 Band Neutrophils % 8 Lymphocytes % 2 Monocytes % 1 Neutrophils # (Manual) 23.7 Differential Comment FINAL DIFF MANUAL Platelet Estimate NORMAL Platelet Morphology Comment NORMAL Tear Drop Cells 1+ Prothrombin Time 10.7 Prothromb Time International Ratio 1.1 Activated Partial Thromboplast Time 29.9 Bedside Sodium 128 Blood Urea Nitrogen 11 Creatinine 0.63 Random Glucose 86 Total Protein 7.5 Albumin 3.5 Calcium Level 8.6 Alkaline Phosphatase 90 Aspartate Amino Transf (AST/SGOT) 12 Alanine Aminotransferase (ALT/SGPT) 16 Total Bilirubin 0.7 Sodium Level 129 Potassium Level 4.0 Chloride Level 95 Carbon Dioxide Level 22.0 Bedside Potassium 3.9 Bedside Chloride 93 Anion Gap 12 Bedside Blood Urea Nitrogen 12 Bedside Creatinine 0.4 Estimat Glomerular Filtration Rate 95 Bedside Glucose 88 Lactic Acid Level 1.5 Date/Time Source Procedure Growth Status 08/16/17 14:20 Blood Peripheral Aerobic Blood Culture Pending Received 08/16/17 14:20 Blood Peripheral Anaerobic Blood Culture Pending Received 08/16/17 14:10 Nasal Aspirate Influenza Types A,B Antigen (STEVEN) - Final NEGATIVE FOR FLU A AND B ANTIGEN.... Complete 08/16/17 14:10 Urine Catheterized Urine Urine Culture Pending Received Result Diagram: 08/16/17 1415 08/16/17 1415 Imaging Last Impressions Chest X-Ray 08/16/17 1403 Signed Impressions: CONCLUSION: Patchy opacity within the left upper lung field consistent with possible pneumo wild. Clinical correlation is recommended. If the patient has no symptoms sugges tive of pneumonia CT of the chest may be helpful for further evaluation. Head CT 08/16/17 0000 Signed Impressions: CONCLUSION: 1. Negative CT Head non contrast. Caprini VTE Risk Assessment Caprini VTE Risk Assessment: Mod/High Risk (score >= 2) Caprini Risk Assessment Model Point Value = 1 Point Value = 2 Point Value = 3 Point Value = 5 Age 41-60 Minor surgery BMI > 25 kg/m2 Swollen legs Varicose veins or History of unexplained or recurrent spontaneous Oral contraceptives or hormone replacement Sepsis (< 1 month) Serious lung disease, including pneumonia (< 1 month) Abnormal pulmonary function Acute myocardial infarction Congestive heart failure (< 1 month) History of inflammatory bowel disease Medical patient at bed rest Age 61-74 Arthroscopic surgery Major open surgery (> 45 min) Laparoscopic surgery (> 45 min) Malignancy Confined to bed (> 72 hours) Immobilizing plaster cast Central venous access Age >= 75 History of VTE Family history of VTE Factor V Leiden Prothrombin [id number] Lupus anticoagulant Anticardiolipin antibodies Elevated serum homocysteine Heparin-induced thrombocytopenia Other congenital or acquired thrombophilia Stroke (< 1 month) Elective arthroplasty Hip, pelvis, or leg fracture Acute spinal cord injury (< 1 month) Prophylaxis Regimen Total Risk Factor Score Risk Level Prophylaxis Regimen 0-1 Low Early ambulation 2 Moderate Order ONE of the following: *Sequential Compression Device (SCD) *Heparin 5000 units SQ BID 3-4 Higher Order ONE of the following medications: *Heparin 5000 units SQ TID *Enoxaparin/Lovenox 40 mg SQ daily (WT < 150 kg, CrCl > 30 mL/min) *Enoxaparin/Lovenox 30 mg SQ daily (WT < 150 kg, CrCl > 10-29 mL/min) *Enoxaparin/Lovenox 30 mg SQ BID (WT < 150 kg, CrCl > 30 mL/min) AND/OR *Sequential Compression Device (SCD) 5 or more Highest Order ONE of the following medications: *Heparin 5000 units SQ TID (Preferred with Epidurals) *Enoxaparin/Lovenox 40 mg SQ daily (WT < 150 kg, CrCl > 30 mL/min) *Enoxaparin/Lovenox 30 mg SQ daily (WT < 150 kg, CrCl > 10-29 mL/min) *Enoxaparin/Lovenox 30 mg SQ BID (WT < 150 kg, CrCl > 30 mL/min) AND *Sequential Compression Device (SCD) Assessment and Plan Assessment and Plan Patient admitted for severe sepsis due to pneumonia. 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 She lives alone with her dog. Patient denies any hospitalization. She received a dose of azithromycin and Rocephin in the emergency room. We will continue azithromycin and Rocephin IV. Encourage p.o. hydration. Give gentle fluid hydration with normal saline at 60 mL's per hour. Patient presents with WBC at 20 4.4K with bandemia 8. T-max was 101, she was tachycardic with a heart rate of 105. Lactic acid was 1.5. Hyponatremia: pt admits to drinking 6pack daily. Monitor Asthma/COPD: No wheezing on exam. Patient satting well. 97% on room air. Will add duonebs as needed for shortness of breath/wheezing. u/a w occ bacteria and few mucus, WBC 3-5. urine cx pending. she is asymptomatic however she is already on rocephin. Headache/bodyaches: Mostly exacerbated by coughing and most likely from her PNA. Patient tells me Tylenol #3 usually works for her. Will order it for her. Hypertension: Stable. Resume home medication. Add Vasotec as needed for elevated blood pressures greater than 160 systolic Hyperlipidemia: Resume home medication Tobacco abuse and alcohol abuse: pt counseled. not interested. place on CIWA protocol w sz and fall precautions. DVT prophylaxis: SCD/Lovenox/encourage ambulation Code Status full Discussed Condition With ER physician and patient Irasema Stapleton MD Aug 16, 2017 18:31
[2017-08-16] MEDS: ENOXAPARIN SODIUM 40 MG/0.4 ML SYRINGE SQ SCH (19:55)
[2017-08-16] MEDS: SODIUM CHLOR 0.9% 1000 ML INJ 1,000 ML IV SCH (19:55)
[2017-08-16] MEDS: SODIUM CHLORIDE 0.9% FLUSH 10 ML FLUSH IV FLUSH SCH (21:00)
[2017-08-16] MEDS: PRAVASTATIN SOD 40 MG TAB PO SCH (22:34)
[2017-08-16] MEDS: DOCUSATE SODIUM 50 MG/SENNA 8.6 MG TAB PO SCH (22:34)
[2017-08-17 00:10] VITALS: BP 133/81; PULSE 87; RESP 20; TEMP 99.3; O2SAT 97
[2017-08-17] MEDS: ACETAMINOPHEN/CODEINE 300 MG/30 MG TAB PO PRN ×3 (01:48→16:17)
[2017-08-17 06:30] LABS: AUTOMATED NEUTROPHIL # 12.5 TH/MM3 (1.8-7.7); BASOPHIL # 0.1 TH/MM3 (0-0.2); EOSINOPHIL # 0.1 TH/MM3 (0-0.4); EOSINOPHIL % 0.8 % (0.0-4.0); HEMATOCRIT 31.1 % (35.0-46.0); HEMOGLOBIN 10.9 GM/DL (11.6-15.3); LYMPH % 6.8 % (9.0-44.0); MEAN CELL VOLUME 89.5 FL (80.0-100.0); MEAN CORPUSCULAR HEMOGLOBIN 31.4 PG (27.0-34.0); MEAN PLATELET VOLUME 8.5 FL (7.0-11.0); MONO % 4.1 % (0.0-8.0); MONOCYTE # 0.6 TH/MM3 (0-0.9); NEUT % 87.3 % (16.0-70.0); PLATELET COUNT 205 TH/MM3 (150-450); RED BLOOD COUNT 3.48 MIL/MM3 (4.00-5.30); RED CELL DISTRIBUTION WIDTH 14.1 % (11.6-17.2); WHITE BLOOD COUNT 14.3 TH/MM3 (4.0-11.0)
[2017-08-17 06:38] LABS: BICARBONATE 24.2 MEQ/L (21.0-32.0)
[2017-08-17 06:41] LABS: CREATININE 0.42 MG/DL (0.50-1.00)
[2017-08-17 07:35] VITALS: BP 118/62; PULSE 83; RESP 18; TEMP 99.1; O2SAT 95
[2017-08-17] MEDS: PANTOPRAZOLE SOD 40 MG DELAYED RELEASE TAB PO SCH (08:31)
[2017-08-17] MEDS: amLODIPine BESYLATE 5 MG TAB PO SCH (08:31)
[2017-08-17] MEDS: MULTIVITAMINS/MINERALS THERAPEUTIC TAB PO SCH (08:31)
[2017-08-17] MEDS: FOLIC ACID 1 MG TAB PO SCH (08:31)
[2017-08-17] MEDS: DOCUSATE SODIUM 50 MG/SENNA 8.6 MG TAB PO SCH ×2 (08:31→21:00)
[2017-08-17] MEDS: LOSARTAN 25 MG TAB PO SCH (08:32)
[2017-08-17] MEDS: THIAMINE HCL 100 MG TAB PO SCH (08:32)
[2017-08-17] MEDS: SODIUM CHLORIDE 0.9% FLUSH 10 ML FLUSH IV FLUSH SCH ×2 (08:33→22:11)
[2017-08-17] MEDS: SERTRALINE HCL 50 MG TAB PO SCH (08:33)
[2017-08-17] MEDS: AZITHROMYCIN 250 MG TAB PO SCH (08:33)
[2017-08-17] MEDS: MELOXICAM 15 MG TAB PO SCH (08:36)
--- NOTE | 2017-08-17 09:26 | HHI.PR ---
Subjective Remarks Follow-up pneumonia. Patient seen and examined, sitting up in bed with complaints of headache and bilateral CVA tenderness/back pain. Patient denies any dysuria. Denies any fevers or chills. Has been eating well, minimal appetite. Denies any abdominal pain, nausea or vomiting. Denies any diarrhea. Does state she drinks 6 pack per day of beer as well as smokes one half packs of cigarettes. Patient states she could use a cigarette right now. Denies any history of alcohol withdrawal. Denies nicotine patch offer. Appears she may be going into alcohol withdrawal. Placed on CIMN protocol. Objective Vitals Vital Signs Date Time Temp Pulse Resp B/P (MAP) Pulse Ox O2 Delivery O2 Flow Rate FiO2 08/17/17 07:35 99.1 83 18 118/62 (80) 95 08/17/17 00:10 99.3 87 20 133/81 (98) 97 08/16/17 21:07 100.3 95 20 130/77 (94) 96 08/16/17 20:45 113 20 133/71 (91) 100 08/16/17 17:51 92 18 140/68 (92) 97 Room Air 08/16/17 16:10 98.7 90 16 124/76 (92) 97 Room Air 08/16/17 15:12 100.2 97 18 143/82 (102) 97 Room Air 08/16/17 15:00 100.2 97 18 142/82 (102) 97 Room Air 08/16/17 14:37 18 97 Room Air 08/16/17 14:37 97 Room Air 08/16/17 14:36 101.0 102 18 143/83 (103) 97 Room Air 08/16/17 12:57 99.0 105 20 137/76 (96) 99 I/O 08/16/17 08/16/17 08/16/17 08/17/17 08/17/17 08/17/17 06:59 14:59 22:59 06:59 14:59 22:59 Intake Total 1470 ml Balance 1470 ml Intake Oral 120 ml IV Total 1350 ml # Voids 1 Result Diagram: 08/17/17 0605 08/17/17 0605 Imaging Last Impressions Chest X-Ray 08/16/17 1403 Signed Impressions: CONCLUSION: Patchy opacity within the left upper lung field consistent with possible pneumo wild. Clinical correlation is recommended. If the patient has no symptoms sugges tive of pneumonia CT of the chest may be helpful for further evaluation. Head CT 08/16/17 0000 Signed Impressions: CONCLUSION: 1. Negative CT Head non contrast. Objective Remarks GENERAL: Well-developed, well-nourished patient in NAD. Essential tremors. Anxious. SKIN: Warm and dry. No rash. HEAD: Normocephalic. Atraumatic. EYES: Pupils equal and round. No scleral icterus. No injection or drainage. ENT: No nasal bleeding or discharge. Mucous membranes pink and moist. NECK: Supple. Trachea midline. CARDIOVASCULAR: Regular rate and rhythm. S1, S2 noted. No murmur appreciated. RESPIRATORY: No accessory muscle use. Clear to auscultation. Breath sounds equal bilaterally. GASTROINTESTINAL: Abdomen soft, non-tender, nondistended. Normoactive bowel sounds x4. MUSCULOSKELETAL: No obvious deformities. Extremities without clubbing, cyanosis , or edema. NEUROLOGICAL: Awake and alert. No obvious cranial nerve deficits. Motor grossly within normal limits. 5/5 muscle strength in bilateral upper and lower extremities. Normal speech. A/P Assessment and Plan Patient admitted for severe sepsis due to pneumonia. 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 She lives alone with her dog. Patient denies any hospitalization. Sepsis suspect secondary to pneumonia - Patient presented with leukocytosis, white blood cell 20.4 with bandemia. T- max 101. Tachycardia. Lactic acid 1.5. - Chest x-ray reviewed showing patchy opacity within the left upper lung field consistent with pneumonia. - Patient received a dose of azithromycin and Rocephin in the emergency room. - Will continue azithromycin and Rocephin IV. Encourage p.o. hydration. Give gentle fluid hydration with NS at 60 mL's per hour. - T-max overnight 100.3. Supportive care. - Blood cultures with no growth to date. Continue to follow. Influenza negative. Urine culture pending. Hyponatremia: Sodium 128 on presentation. Today 136. Patient admits to drinking 6pack daily. Placed on CIWA. Continue to monitor. History of asthma History of COPD not in exacerbation - No wheezing on exam. Continue duonebs as needed for shortness of breath/ wheezing. Abnormal UA with occ bacteria and few mucus: Urine culture pending. She is asymptomatic, however she is already on Rocephin for PNA. Continue. Headache/Body aches: Mostly exacerbated by coughing and most likely from her PNA. Continue Tylenol No. 3. Head CT negative. Hypertension: Stable. Resume home medication. Add Vasotec as needed for elevated blood pressures greater than 160 systolic Hyperlipidemia: Resume home medication Tobacco abuse and alcohol abuse: Patient counseled. Nicotine patch offered, patient declines. Place on CIWA protocol w seizure and fall precautions. DVT prophylaxis: SCD/Lovenox/encourage ambulation. Fiona Mckoy Aug 17, 2017 09:26
[2017-08-17] MEDS ORDERED: DEXTROSE 50% IN WATER 50 ML VIAL(D50) IV PUSH PRN (11:15)
[2017-08-17] MEDS ORDERED: GLUCAGON 1 MG/ML VIAL OTHER PRN (11:15)
[2017-08-17 11:40] VITALS: BP 110/62; PULSE 87; RESP 18; TEMP 97.8; O2SAT 96
[2017-08-17] MEDS: SODIUM CHLOR 0.9% 1000 ML INJ 1,000 ML IV SCH (11:52)
[2017-08-17] MEDS: INSULIN ASPART SUPPLEMENTAL SCALE SQ SCH ×3 (11:53→21:00)
[2017-08-17 15:39] VITALS: BP 135/65; PULSE 80; RESP 18; TEMP 99.1; O2SAT 97
[2017-08-17] MEDS ORDERED: cefTRIAXone INJ 1,000 MG in SODIUM CHLORIDE 0.9% INJ 100 ML IV SCH (16:00)
[2017-08-17] MEDS: ENOXAPARIN SODIUM 40 MG/0.4 ML SYRINGE SQ SCH (18:20)
[2017-08-17 20:00] VITALS: BP 101/55; PULSE 76; RESP 20; TEMP 98.2; O2SAT 96
[2017-08-17] MEDS: PRAVASTATIN SOD 40 MG TAB PO SCH (22:09)
[2017-08-18] VITALS: BP 111/59; PULSE 82; RESP 20; TEMP 98.8; O2SAT 96
[2017-08-18] MEDS: SODIUM CHLOR 0.9% 1000 ML INJ 1,000 ML IV SCH (03:18)
[2017-08-18 08:00] VITALS: BP 132/82; PULSE 76; RESP 23; TEMP 97.4; O2SAT 99
[2017-08-18] MEDS: INSULIN ASPART SUPPLEMENTAL SCALE SQ SCH (08:00)
[2017-08-18] MEDS: ACETAMINOPHEN/CODEINE 300 MG/30 MG TAB PO PRN (08:07)
[2017-08-18] MEDS: SODIUM CHLORIDE 0.9% FLUSH 10 ML FLUSH IV FLUSH SCH (08:07)
[2017-08-18] MEDS: SERTRALINE HCL 50 MG TAB PO SCH (08:08)
[2017-08-18] MEDS: DOCUSATE SODIUM 50 MG/SENNA 8.6 MG TAB PO SCH (08:08)
[2017-08-18] MEDS: AZITHROMYCIN 250 MG TAB PO SCH (08:08)
[2017-08-18] MEDS: amLODIPine BESYLATE 5 MG TAB PO SCH (08:08)
[2017-08-18] MEDS: FOLIC ACID 1 MG TAB PO SCH (08:08)
[2017-08-18] MEDS: MELOXICAM 15 MG TAB PO SCH (08:08)
[2017-08-18] MEDS: PANTOPRAZOLE SOD 40 MG DELAYED RELEASE TAB PO SCH (08:08)
[2017-08-18] MEDS: LOSARTAN 25 MG TAB PO SCH (08:08)
[2017-08-18] MEDS: MULTIVITAMINS/MINERALS THERAPEUTIC TAB PO SCH (08:08)
[2017-08-18] MEDS: THIAMINE HCL 100 MG TAB PO SCH (08:09)
[2017-08-18] MEDS ORDERED: ACET1TAB94 PO (08:37)
[2017-08-18] MEDS ORDERED: AZIT250T3 PO (08:37)
--- NOTE | 2017-08-18 08:38 | HHI.DS ---
Discharge Summary Admission Date Aug 16, 2017 at 17:57 Discharge Date: Aug 18, 2017 Admitting Diagnosis Sepsis, Pneumonia (1) Pneumonia ICD Code: J18.9 - Pneumonia, unspecified organism Status: Acute (2) Sepsis ICD Code: A41.9 - Sepsis, unspecified organism Status: Acute Procedures See below Brief History - From Admission Patient is a 61-year-old female with past medical history of hypertension, hyperlipidemia, asthma, COPD presented to the emergency room with complaints of severe headache which started yesterday. She states that this morning she also started having body aches, pain in her shoulders blades chills. She did not take a temperature at home. She was told when she was in the emergency room that she had a fever. She states her headache is worse with coughing. 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 She denies any recent hospitalizations. She states that she usually has a chronic cough but she is a smoker but has not noted an increase in her cough. Admits to dry heaves. Denies any burning with urination or increased urinary frequency. Denies any abdominal pain. Patient is hopeful to go home soon. She tells me that she is not allergic to Tylenol however she takes Tylenol #3 usually whenever she is in pain. CBC/BMP: 08/17/17 0605 08/17/17 0605 Significant Findings Laboratory Tests Test 08/16/17 14:10 08/16/17 14:15 08/16/17 14:20 08/17/17 06:05 Urine Ketones TRACE mg/dL (NEG) Urine Occult Blood SMALL (NEG) Urine Bacteria OCC /hpf (NONE) Urine Mucus FEW /lpf (OCC) White Blood Count 24.4 TH/MM3 (4.0-11.0) 14.3 TH/MM3 (4.0-11.0) Red Blood Count 3.76 MIL/MM3 (4.00-5.30) 3.48 MIL/MM3 (4.00-5.30) Hematocrit 33.5 % (35.0-46.0) 31.1 % (35.0-46.0) Neutrophils % (Manual) 89 % (16-70) Band Neutrophils % 8 % (0-6) Lymphocytes % 2 % (9-44) Neutrophils # (Manual) 23.7 TH/MM3 (1.8-7.7) Tear Drop Cells 1+ (NORMAL) Bedside Sodium 128 MMOL/L (137-144) Aspartate Amino Transf (AST/SGOT) 12 U/L (15-37) Sodium Level 129 MEQ/L (136-145) Chloride Level 95 MEQ/L (98-107) Bedside Chloride 93 MMOL/L (102-111) Bedside Creatinine 0.4 MG/DL (0.6-1.3) Hemoglobin 10.9 GM/DL (11.6-15.3) Neutrophils (%) (Auto) 87.3 % (16.0-70.0) Lymphocytes (%) (Auto) 6.8 % (9.0-44.0) Neutrophils # (Auto) 12.5 TH/MM3 (1.8-7.7) Creatinine 0.42 MG/DL (0.50-1.00) Calcium Level 8.0 MG/DL (8.5-10.1) Imaging Last Impressions Chest X-Ray 08/16/17 1403 Signed Impressions: CONCLUSION: Patchy opacity within the left upper lung field consistent with possible pneumo wild. Clinical correlation is recommended. If the patient has no symptoms sugges tive of pneumonia CT of the chest may be helpful for further evaluation. Head CT 08/16/17 0000 Signed Impressions: CONCLUSION: 1. Negative CT Head non contrast. PE at Discharge GENERAL: Well-developed, well-nourished patient in NAD. Essential tremors. Anxious. SKIN: Warm and dry. No rash. HEAD: Normocephalic. Atraumatic. EYES: Pupils equal and round. No scleral icterus. No injection or drainage. ENT: No nasal bleeding or discharge. Mucous membranes pink and moist. NECK: Supple. Trachea midline. CARDIOVASCULAR: Regular rate and rhythm. S1, S2 noted. No murmur appreciated. RESPIRATORY: No accessory muscle use. Clear to auscultation. Breath sounds equal bilaterally. GASTROINTESTINAL: Abdomen soft, non-tender, nondistended. Normoactive bowel sounds x4. MUSCULOSKELETAL: No obvious deformities. Extremities without clubbing, cyanosis , or edema. NEUROLOGICAL: Awake and alert. No obvious cranial nerve deficits. Motor grossly within normal limits. 5/5 muscle strength in bilateral upper and lower extremities. Normal speech. Pt update on day of discharge Follow-up sepsis pneumonia. Patient seen and examined, sitting up in bed comfortably in no apparent distress. Patient is eager to go home. She states that all of her symptoms have resolved. She has been eating well with no nausea or vomiting. No shortness of breath, has been ambulating in room with no distress. Pain is controlled. Afebrile overnight. Vital signs stable. White blood cells trending down. Denies any fever, chills, cough, shortness of breath, abdominal, nausea, vomiting, diarrhea or dysuria. Blood cultures negative to date. Urine culture negative. Influenza negative. Hospital Course Patient admitted for severe sepsis due to pneumonia. She does work in a fpc however she denies any sick contacts there or at home. She lives alone with her dog. Patient denies any hospitalization. She received a dose of azithromycin and Rocephin in the emergency room. We continued azithromycin and Rocephin IV and the hospital. Upon discharge given her antibiotics, encouraged to complete. Patient is tolerating p.o. intake, was given IV fluid for hydration.fever is resolved. White blood cell trending down. Hyponatremia improved. Patient encouraged to stop drinking. UA was positive with bacteria mucus, urine culture was negative. Headaches and body aches improved with Tylenol 3, will give short prescription for discharge. Patient counseled on tobacco and alcohol cessation. No signs of withdrawal during hospitalization. She was stabilized and encouraged to follow-up with PCP upon discharge. Pt Condition on Discharge: Stable Discharge Disposition: Discharge Home Discharge Time: > 30 minutes Discharge Instructions DIET: Follow Instructions for: Heart Healthy Diet Speech Therapy-Diet Recommends: Regular Activities you can perform: Regular-No Restrictions Follow up Referrals: PCP Follow-up - 1 Week New Medications: Amoxicillin-Clavulanate (Amoxicillin-Clavulanate) 875-125 mg Tab 875 MG PO BID for Infection for 3 Days, #6 TAB 0 Refills not for use in CrCl <30 mL/minute Acetaminophen-Codeine (Acetaminophen-Codeine) 300-30 mg Tab 1 TAB PO Q6H PRN for pain for 2 Days, #8 TAB Continued Medications: Albuterol 18 GM Inh (Ventolin Hfa 18 GM Inh) 90 Mcg/Act Aer 2 PUFF INH Q4-6H PRN for SHORTNESS OF BREATH, #1 INHALER Albuterol 8.5 GM Inh (Proair Hfa 8.5 GM Inh) 90 Mcg/Act Aer 2 PUFF INH Q4-6H PRN for SHORTNESS OF BREATH, #1 INHALER 0 Refills 108 mcg/actuation Amlodipine (Amlodipine) 5 Mg Tab 5 MG PO DAILY for Blood Pressure Management, #30 TAB 0 Refills Cetirizine (Cetirizine) 10 Mg Tab 10 MG PO DAILY for Allergies, TAB 0 Refills Fish Oil-Cholecalciferol ([place]-3 Fish Oil/Vitamin) 1,000-1,000 Mg Cap 1 CAP PO DAILY for Nutritional Supplement, CAP 0 Refills Losartan (Losartan) 25 Mg Tab 25 MG PO DAILY for Blood Pressure Management, #30 TAB 0 Refills Meloxicam (Meloxicam) 15 Mg Tab 15 MG PO DAILY for Arthritis Pain, #30 TAB 0 Refills Multiple Vitamin (Multi-Vitamin Daily) 1 Tab Tab 1 TAB PO DAILY for Nutritional Supplement, TAB 0 Refills Omeprazole (Omeprazole) 40 Mg Cap 40 MG PO DAILY, #30 CAP 0 Refills Ranitidine (Ranitidine) 300 Mg Tab 300 MG PO HS for Heartburn Management, #30 TAB 0 Refills Sertraline (Sertraline) 50 Mg Tab 100 MG PO DAILY, #30 TAB 0 Refills Simvastatin (Simvastatin) 40 Mg Tab 40 MG PO HS for Cholesterol Management, #30 TAB 0 Refills Discontinued Medications: Azithromycin (Azithromycin) 250 Mg Tab 250 MG PO DIRECTED for Infection, #6 TAB 0 Refills Take 2 tabs (500 mg) on day 1 then 1 tab daily x 4 days. Cephalexin (Keflex) 500 Mg Cap 500 MG PO Q6H for Infection for 7 Days, #28 CAP 0 Refills Fiona Mckoy Aug 18, 2017 08:38
[2017-08-18 08:39] VITALS: RESP 18
[2017-08-18] MEDS ORDERED: AMOX875T2 PO (08:39)
--- NOTE | 2017-08-18 08:40 | HHI.DCPOC ---
Discharge Care Plan Diagnosis: (1) Sepsis (2) Pneumonia Goals to Promote Your Health * To prevent worsening of your condition and complications * To maintain your health at the optimal level Directions to Meet Your Goals Take your medications as prescribed Follow your dietary instruction Follow activity as directed Keep your appointments as scheduled Take your immunizations and boosters as scheduled If your symptoms worsen call your PCP, if no PCP go to Urgent Care Center or Emergency Room Smoking is Dangerous to Your Health. Avoid second hand smoke Call the 24-hour hour crisis hotline for domestic abuse at Fiona Mckoy Aug 18, 2017 08:40
== END 2017-08-18 10:00 | disposition home or self-care (01) | DRG 871 ==
LOC: PHED 12:42 → PHEDA 17:57 → PH3B 20:42
PROVIDERS: ADMIT Hospitalist; ATTEND Hospitalist
DX: A41.9 Sepsis, unspecified organism (principal); J18.9 Pneumonia, unspecified organism; J44.0 Chronic obstructive pulmonary disease with (acute) lower respiratory infection; E87.1 Hypo-osmolality and hyponatremia; R65.20 Severe sepsis without septic shock; I10 Essential (primary) hypertension; F32.9 Major depressive disorder, single episode, unspecified; E78.00 Pure hypercholesterolemia, unspecified; K21.9 Gastro-esophageal reflux disease without esophagitis; R51 Headache; E78.5 Hyperlipidemia, unspecified; M54.9 Dorsalgia, unspecified; F17.210 Nicotine dependence, cigarettes, uncomplicated; M19.90 Unspecified osteoarthritis, unspecified site; F10.10 Alcohol abuse, uncomplicated; Z90.710 Acquired absence of both cervix and uterus
CPT/HCPCS: 70450; 71045; 80048; 80053; 81001; 82948; 83605; 85007; 85025; 85027; 85610; 85730; 87040; 87086; 87804; 96361; 96365; 96368; J0456; J0696; J1650; J7030; J7050

== ENCOUNTER 2017-11-05 07:54 | Inpatient (IN) ==
[2017-11-05] MEDS ORDERED: Metoprolol Tartrate 25 MG Tablet PO ONE (08:20)
[2017-11-05] MEDS ORDERED: Chlorhexidine Gluconate 2% 1 Pack (2 Cloths) TOPICAL ONE (08:20)
--- NOTE | 2017-11-05 08:47 | XR ---
EXAM DATE: 11/05/2017 8:37 AM EDT AGE/SEX: 61 years / Female INDICATIONS: Evaluate for pneumothorax, pneumonia, and other communicable diseases. Pre-op surgery. CLINICAL DATA: This is the patient's initial encounter. Patient reports that signs and symptoms have been present for 1 day and indicates a pain score of 0/10. MEDICAL/SURGICAL HISTORY: Hypertension. Chronic obstructive pulmonary disease. None. COMPARISON: [facility], CHEST SINGLE AP, 08/16/2017. . FINDINGS: The cardiac silhouette is normal in transverse diameter. There is near complete resolution of the pre viously seen left upper lobe pneumonia No pleural effusions are identified. There is a questionable n odular density remaining in the left apex at the site of previously pneumonia.CT scan is recommended if clinically indicated. CONCLUSION: Resolved left upper lobe pneumonia with questionable nodule remaining in the left apex. CT scan is re commended if clinically indicated. Electronically signed by: Darren Rowley MD 11/05/2017 8:46 AM EDT
[2017-11-05] MEDS ORDERED: Sodium Chlor 0.9% Inj 500 ML IV.SIG SCH (09:00)
[2017-11-05 09:29] LABS: Baso % (Auto) 0.7 % (0.0-2.0); Eos # (Auto) 0.1 th/mm3 (0.0-0.4); Eos % (Auto) 2.5 % (0.0-4.0); Hematocrit 37.3 % (35.0-46.0); Hemoglobin 12.7 gm/dL (11.6-15.3); Lymph # (Auto) 1.8 th/mm3 (1.0-4.8); Mean Corpuscular HGB Conc 34.1 % (32.0-36.0); Mean Corpuscular Hemoglobin 30.7 pg (27.0-34.0); Mean Corpuscular Volume 90.1 fL (80.0-100.0); Mean Platelet Volume 7.9 fL (7.0-11.0); Mono # (Auto) 0.4 th/mm3 (0.0-0.9); Mono % (Auto) 8.2 % (0.0-8.0); Neut # (Auto) 2.9 th/mm3 (1.8-7.7); Neut % (Auto) 54.6 % (16.0-70.0); Platelet Count 274 th/mm3 (150-450); Red Blood Count 4.14 mil/mm3 (4.00-5.30); Red Cell Distribution Width 13.5 % (11.6-17.2); White Blood Count 5.4 th/mm3 (4.0-11.0)
[2017-11-05 09:38] LABS: Prothrombin Time 10.4 sec (9.8-11.6)
[2017-11-05 10:02] LABS: Bilirubin,Urine Negative (Negative); Clarity,Urine Clear (Clear); Color,Urine Yellow (Yellw/Straw); Glucose,Urine (UA) Negative (Negative); Leukocyte Esterase,Urine Negative (Negative); Mucus,Urine Few /lpf (Occasional); Nitrite,Urine Negative (Negative); Specific Gravity,Urine 1.014 (1.002-1.035); Squamous Epithelial Cell,Urine 3 /hpf (0-5)
[2017-11-05 10:06] LABS: Alanine Aminotransferase 17 U/L (10-53); Anion Gap 8 meq/L (5-15); Aspartate Aminotransferase 10 U/L (15-37); Blood Urea Nitrogen 11 mg/dL (7-18); Calcium 9.1 mg/dL (8.5-10.1); Carbon Dioxide 27.5 meq/L (21.0-32.0); Chloride 108 meq/L (98-107); Glomerular Filtration Rate 89 mL/min (>89); Glucose,Random 83 mg/dL (74-106); Potassium 3.8 meq/L (3.5-5.1); Sodium 143 meq/L (136-145)
[2017-11-05 10:08] LABS: Alkaline Phosphatase 76 U/L (45-117); Total Protein 7.6 g/dL (6.4-8.2)
[2017-11-05] MEDS ORDERED: Heparin 10,000 UNITS/10 ML Vial (for IV use) ONE (11:16)
[2017-11-05] MEDS ORDERED: Heparin - SQ 10,000 UNITS/ML Vial ONE (11:16)
[2017-11-05] MEDS ORDERED: Lidocaine 2% Inj 50 ML Vial ONE (11:16)
[2017-11-05] MEDS ORDERED: Protamine Sulfate Inj 50 MG/5 ML Vial ONE (11:20)
--- NOTE | 2017-11-05 11:25 | ECG ---
Date Performed: 11/05/2017 Time Performed: 08:34:49 PTAGE: 61 years EKG: Sinus rhythm NORMAL ECG PREVIOUS TRACING : 11/29/2012 10.36 Since the previous tracing, no significant change noted DOCTOR: Darren Patel Interpretating Date/Time 11/05/2017 11:23:50
[2017-11-05] MEDS ORDERED: Neostigmine Inj 5 MG/5 ML Syringe IV.PUSH ONE (13:45)
[2017-11-05] MEDS ORDERED: Labetalol HCl Inj 100 MG/20 ML Vial IV.CONT ONE (13:45)
[2017-11-05] MEDS ORDERED: Phenylephrine/NS 1000 MCG/10ML Syringe IV.PUSH ONE (13:45)
[2017-11-05] MEDS ORDERED: Lidocaine PF 1% Inj 5 ML Syringe INFILTRATN ONE (13:45)
[2017-11-05] MEDS ORDERED: Esmolol Bolus Inj 100 MG/10 ML Vial IV.PUSH ONE (13:45)
[2017-11-05] MEDS ORDERED: Glycopyrrolate Inj 1 MG/5 ML Syringe IV.PUSH ONE (13:45)
[2017-11-05] MEDS ORDERED: ceFAZolin 2 GM IV; once IV.SIG ONE (13:45)
[2017-11-05] MEDS ORDERED: fentaNYL Citrate Inj 100 MCG/2 ML Ampul ONE (14:23)
[2017-11-05] MEDS ORDERED: Morphine Inj 4 MG/ML Vial ONE (14:23)
[2017-11-05] MEDS ORDERED: *morphine SULFATE 4 MG/ML PERIprocedure ONLY ONE ×2 (14:31→15:02)
[2017-11-05] MEDS ORDERED: Post-op Orders (for Pharmacy) OTHER ONE (14:42)
[2017-11-05] MEDS ORDERED: oxyCODONE/Acetaminophen 10/325 Tablet PO PRN (14:42)
[2017-11-05] MEDS ORDERED: Naloxone Inj 0.4 MG/ML Vial IV.PUSH PRN (14:42)
[2017-11-05] MEDS ORDERED: Bisacodyl 10 MG Supp RECTAL PRN (14:42)
[2017-11-05] MEDS ORDERED: *Meperidine Inj 25 MG/ML Vial PERIprocedural Use ONLY ONE (14:44)
--- NOTE | 2017-11-05 17:02 | MP ---
cc: Dania Benedict MD DATE OF OPERATION: 11/05/2017 PREOPERATIVE DIAGNOSIS: Tight right internal carotid artery stenosis, about 80% to 90%. POSTOPERATIVE DIAGNOSIS: Tight right internal carotid artery stenosis, about 80% to 90%. PROCEDURE PERFORMED: Right carotid endarterectomy patch angioplasty. SURGEON: Dania Benedict MD ANESTHESIA: General. ESTIMATED BLOOD LOSS: 200 mL PROCEDURE: The patient prepped and draped in the usual fashion from the right breast to sternocleidomastoid. The incision made, deepened down to the platysma, which was opened and then the carotid sheath is dissected with blunt and sharp dissection and Weitlaner retractors placed proximally and distally. Common carotid, internal and external carotid arteries are dissected sharply and bluntly and then umbilical tape with Rumel is placed around these respectively. The [place] upper arm retractor was placed and area exposed. Hypoglossal nerves was carefully identified and preserved. The patient was given 5000 units of heparin and clamps applied. A bulldog to internal carotid artery and the angled [place] to common vessel was opened longitudinally with Ramirez scissors. The patient has a huge plaque which is kind of crumbly and firm, obviously calcified, occupying most of the bifurcation and then going to about an inch into the internal carotid artery distally and dissected in a medial plane and removed. Meticulous care was taken to remove all the debris with a forceps and with a heparin flushes as well as Weck-Cels. The proximal end is cut nicely with Ramirez scissors. Distal intima is peeled off as much as it can be however, there is a slightly raised intima present, which is tacked down with 3 stitches of horizontal 7-0 Prolene. The bovine patch is now brought to the field and then sewn in with a running stitch with a 5-0 Prolene. Prior to completion of the closure, the [place] shunt is removed and blood flow and the clamp reapplied once the closure of the vessel is completed, the blood flow is reestablished in the usual order and fashion preventing distal embolization in the internal carotid artery. Blood flow was checked with the Doppler and it was brisk. The area rinsed with copious amounts of saline. Meticulous hemostasis obtained with some more 6-0 Prolene patch stitches. Then, a piece of Surgicel placed over the vessel and a 7 flat BERTHA placed. The patient was given 20 units of protamine. The area irrigated with saline again and closed with 0 Vicryl layers and 4-0 Monocryl. The patient tolerated the procedure well. MD ANDREW Foley/ct , 04:23 PM , 04:31 PM
[2017-11-05] MEDS: Morphine Inj 4 MG/ML Vial IV.PUSH PRN ×2 (19:46→22:50)
[2017-11-05] MEDS: Sod Chloride 0.9% Inj 1,000 ML IV.SIG SCH (20:15)
[2017-11-05] MEDS: Senna/Docusate Sodium 8.6/50 MG Tablet PO SCH (20:21)
[2017-11-05] MEDS: Famotidine 20 MG Tablet PO SCH (20:21)
[2017-11-06] MEDS: Morphine Inj 4 MG/ML Vial IV.PUSH PRN ×3 (02:05→08:38)
[2017-11-06 04:22] LABS: Baso % (Auto) 0.5 % (0.0-2.0); Hematocrit 28.9 % (35.0-46.0); Hemoglobin 10.2 gm/dL (11.6-15.3); Lymph # (Auto) 1.2 th/mm3 (1.0-4.8); Lymph % (Auto) 18.1 % (9.0-44.0); Mean Corpuscular HGB Conc 35.1 % (32.0-36.0); Mean Corpuscular Hemoglobin 32.5 pg (27.0-34.0); Mean Corpuscular Volume 92.5 fL (80.0-100.0); Mean Platelet Volume 8.6 fL (7.0-11.0); Mono # (Auto) 0.5 th/mm3 (0.0-0.9); Mono % (Auto) 7.8 % (0.0-8.0); Neut % (Auto) 73.6 % (16.0-70.0); Platelet Count 224 th/mm3 (150-450); Red Blood Count 3.13 mil/mm3 (4.00-5.30); Red Cell Distribution Width 13.2 % (11.6-17.2); White Blood Count 6.8 th/mm3 (4.0-11.0)
[2017-11-06] MEDS: Sod Chloride 0.9% Inj 1,000 ML IV.SIG SCH (08:27)
[2017-11-06] MEDS: Senna/Docusate Sodium 8.6/50 MG Tablet PO SCH (08:39)
[2017-11-06] MEDS: Famotidine 20 MG Tablet PO SCH (08:39)
[2017-11-06 10:28] VITALS: RESP 20; O2SAT 99
--- NOTE | 2017-11-06 11:53 | P.PNVS ---
Subjective Subjective/Hospital Course: 11/06/2017 Patient is status post right carotid endarterectomy/patch angioplasty Patient is neurologically fully stable [place] Coma Scale is 15 and motorically and sensory she is intact with normal deep tendon reflexes Awake alert and oriented Incision is clean and dry and BERTHA drainage is minimal DC BERTHA Stop IV fluids Discharge patient today Objective Vital Signs / I&O: Vital Signs 11/05/17 14:15 11/05/17 14:30 11/05/17 14:45 Temperature 97.7 F Pulse Rate 87 79 80 Respiratory Rate 18 18 18 Blood Pressure 152/63 H 149/83 H 155/69 H Pulse Oximetry 95 95 95 11/05/17 15:00 11/05/17 15:15 11/05/17 16:15 Temperature Pulse Rate 84 76 85 Respiratory Rate 18 18 18 Blood Pressure 130/66 141/75 H 130/66 Pulse Oximetry 95 95 95 11/05/17 17:15 11/05/17 18:00 11/05/17 20:00 Temperature 97.7 F 98 F Pulse Rate 87 87 87 Respiratory Rate 18 18 16 Blood Pressure 123/63 130/63 146/65 H Pulse Oximetry 95 95 99 11/05/17 20:41 11/06/17 00:00 11/06/17 04:00 Temperature 98.1 F 98 F Pulse Rate 77 75 Respiratory Rate 10 L 19 Blood Pressure 135/60 116/58 L Pulse Oximetry 95 95 93 L 11/06/17 08:00 Temperature 98.3 F Pulse Rate 81 Respiratory Rate 20 Blood Pressure 148/67 H Pulse Oximetry 99 Intake & Output 11/05/17 11/06/17 11/06/17 18:59 06:59 18:59 Intake Total 1000 / 1000 1959 / 1959 Output Total 200 / 200 40 / 40 Balance 800 / 800 1920 / 1920 Weight 52.6 kg 57.4 kg Intake: IV 1000 / 1000 LR 1000 mL Inj 1,000 ML @ 30 1000 / 1000 mls/hr IV.SIG .Q24H [facility] Rx#: [id number] Oral Supplement 960 / 960 Anesthesia Amount 1000 / 1000 Output: Estimated Blood Loss 200 / 200 Wound Drainage 40 / 40 # 1 Right Neck BERTHA Drain 40 / 40 Other: # Voids 7 Weight On Admission 52.6 kg Laboratory Results - last 24 hr 11/06/17 03:30 WBC 6.8 RBC 3.13 L Hgb 10.2 L D Hct 28.9 L MCV 92.5 MCH 32.5 MCHC 35.1 RDW 13.2 Plt Count 224 MPV 8.6 Neut % (Auto) 73.6 H Lymph % (Auto) 18.1 [place] % (Auto) 7.8 Eos % (Auto) 0.0 Baso % (Auto) 0.5 Neut # (Auto) 5.0 Lymph # (Auto) 1.2 [place] # (Auto) 0.5 Eos # (Auto) 0.0 Baso # (Auto) 0.0 WBC Differential . Differential Comment Auto diff final Impressions Chest X-Ray 11/05/17 00:00 CONCLUSION: Resolved left upper lobe pneumonia with questionable nodule remaining in the left apex. CT scan is recommended if clinically indicated.
[2017-11-06 12:30] VITALS: BP 139/75; PULSE 78; TEMP 98.4
== END 2017-11-06 13:46 | disposition home or self-care (01) ==
LOC: HSDI 07:54 → N03 18:25
PROVIDERS: ADMIT Surgery; ATTEND Surgery

== ENCOUNTER 2018-01-20 08:01 | Inpatient (IN) ==
[2018-01-20] MEDS ORDERED: Metoprolol Tartrate 25 MG Tablet PO ONE (08:45)
[2018-01-20] MEDS ORDERED: Sodium Chlor 0.9% Inj 500 ML IV.CONT ONE (08:45)
[2018-01-20] MEDS ORDERED: Chlorhexidine Gluconate 2% 1 Pack (2 Cloths) TOPICAL ONE (08:45)
[2018-01-20] MEDS ORDERED: Dexmedetomidine Inj 200 MCG/2 ML Vial ONE (08:54)
--- NOTE | 2018-01-20 08:55 | XR ---
EXAM DATE: 01/20/2018 8:52 AM EST AGE/SEX: 62 years / Female INDICATIONS: Evaluate for pneumonia, pneumothorax, or communicable disease. CLINICAL DATA: This is the patient's initial encounter. Patient reports that signs and symptoms have been present for 1 day and indicates a pain score of 2/10. MEDICAL/SURGICAL HISTORY: . Hypertension. Chronic obstructive pulmonary disease None. COMPARISON: [facility], XR CHEST PA AND LAT, 12/17/2017. . FINDINGS: Scattered emphysematous changes are stable. The heart is stable. No focal pulmonary infiltrate or pul monary vascular congestion is noted. Mild degenerative changes and scoliosis of the thoracic spine ar e noted. CONCLUSION: 1. Stable scattered emphysematous changes. 2. No acute focal infiltrate or pulmonary vascular congestion. 3. Mild degenerative changes and scoliosis of the thoracic spine. Electronically signed by: Kai Yancey MD 01/20/2018 8:54 AM EST
[2018-01-20 09:04] LABS: Baso % (Auto) 0.8 % (0.0-2.0); Eos # (Auto) 0.2 th/mm3 (0.0-0.4); Eos % (Auto) 3.5 % (0.0-4.0); Hematocrit 33.5 % (35.0-46.0); Hemoglobin 11.2 gm/dL (11.6-15.3); Lymph # (Auto) 1.5 th/mm3 (1.0-4.8); Lymph % (Auto) 30.2 % (9.0-44.0); Mean Corpuscular HGB Conc 33.4 % (32.0-36.0); Mean Corpuscular Hemoglobin 29.5 pg (27.0-34.0); Mean Corpuscular Volume 88.4 fL (80.0-100.0); Mean Platelet Volume 7.8 fL (7.0-11.0); Mono # (Auto) 0.4 th/mm3 (0.0-0.9); Mono % (Auto) 9.1 % (0.0-8.0); Neut # (Auto) 2.7 th/mm3 (1.8-7.7); Neut % (Auto) 56.4 % (16.0-70.0); Platelet Count 314 th/mm3 (150-450); Red Blood Count 3.79 mil/mm3 (4.00-5.30); Red Cell Distribution Width 13.9 % (11.6-17.2); White Blood Count 4.9 th/mm3 (4.0-11.0)
[2018-01-20 09:12] LABS: Prothrombin Time 10.5 sec (9.8-11.6)
[2018-01-20] MEDS ORDERED: Heparin 10,000 UNITS/10 ML Vial (for IV use) ONE (09:18)
[2018-01-20] MEDS ORDERED: Heparin - SQ 10,000 UNITS/ML Vial ONE (09:18)
[2018-01-20] MEDS ORDERED: Protamine Sulfate Inj 50 MG/5 ML Vial ONE (09:18)
[2018-01-20 09:20] LABS: Anion Gap 7 meq/L (5-15); Aspartate Aminotransferase 14 U/L (15-37); Blood Urea Nitrogen 13 mg/dL (7-18); Calcium 8.9 mg/dL (8.5-10.1); Carbon Dioxide 26.7 meq/L (21.0-32.0); Chloride 106 meq/L (98-107); Glomerular Filtration Rate Greater Than 89 mL/min (>89); Glucose,Random 91 mg/dL (74-106); Potassium 3.7 meq/L (3.5-5.1); Sodium 140 meq/L (136-145)
[2018-01-20 09:25] LABS: Alanine Aminotransferase 17 U/L (10-53); Alkaline Phosphatase 90 U/L (45-117); Total Protein 7.5 g/dL (6.4-8.2)
[2018-01-20] MEDS ORDERED: Nitroglycerin Drip Premix 0 MG/0 ML BOTTLE ONE (09:58)
[2018-01-20] MEDS ORDERED: niCARdipine Inj 25 MG/10 ML Vial ONE (10:00)
[2018-01-20] MEDS ORDERED: Normosol-R pH 7.4 Inj 2,000 ML IV.CONT ONE (10:33)
[2018-01-20] MEDS ORDERED: Glycopyrrolate Inj 1 MG/5 ML Syringe IV.PUSH ONE (10:33)
[2018-01-20] MEDS ORDERED: Lidocaine PF 1% Inj 5 ML Syringe OTHER ONE (10:33)
[2018-01-20] MEDS ORDERED: Neostigmine Inj 5 MG/5 ML Syringe IV.PUSH ONE (10:33)
[2018-01-20] MEDS ORDERED: Phenylephrine/NS 1000 MCG/10ML Syringe IV.PUSH ONE (10:33)
[2018-01-20] MEDS ORDERED: ceFAZolin 1 GM Premix Inj 1 GM/50 ML PIGGYBACK IV.SIG ONE (10:39)
[2018-01-20] MEDS ORDERED: Post-op Orders (for Pharmacy) OTHER ONE (13:05)
[2018-01-20] MEDS ORDERED: Naloxone Inj 0.4 MG/ML Vial IV.PUSH PRN (13:05)
[2018-01-20] MEDS ORDERED: fentaNYL Citrate Inj 100 MCG/2 ML Ampul ONE ×2 (13:06)
[2018-01-20] MEDS ORDERED: Morphine Inj 4 MG/ML Vial ONE (13:18)
[2018-01-20] MEDS ORDERED: *morphine SULFATE 10 MG/ML PERIprocedure ONLY ONE (13:30)
[2018-01-20] MEDS: Sod Chloride 0.9% Inj 1,000 ML IV.CONT SCH (13:40)
[2018-01-20] MEDS ORDERED: Morphine Sulfate Inj 2 MG/ML Vial ONE (14:47)
[2018-01-20] MEDS: Morphine Inj 4 MG/ML Vial IV.PUSH PRN ×2 (17:53→21:56)
[2018-01-20] MEDS: Senna/Docusate Sodium 8.6/50 MG Tablet PO SCH (20:07)
[2018-01-20] MEDS: Budesonide-Formoterol 160/4.5 MCG 6 GM Inhaler INH SCH (20:13)
[2018-01-20] MEDS ORDERED: amLODIPine 5 MG Tablet PO SCH (21:00)
--- NOTE | 2018-01-20 21:39 | MP ---
cc: Dania Benedict MD DATE OF OPERATION: 01/20/2018 PREOPERATIVE DIAGNOSIS: Left internal carotid artery stenosis, about 80%. POSTOPERATIVE DIAGNOSIS: Left internal carotid artery stenosis, about 80%. PROCEDURE PERFORMED: Left carotid endarterectomy with patch angioplasty. SURGEON: Dania Benedict MD ANESTHESIA: General. ESTIMATED BLOOD LOSS: 100 mL. DESCRIPTION OF PROCEDURE: The patient was prepped and draped in the usual fashion. The area was infiltrated with 1% Xylocaine. A left sternocleidomastoid incision was made and deepened down through the platysma and into the carotid sheath. The common carotid, internal and external carotid arteries were isolated with combined sharp and blunt dissection with [place]zen[place] and a right angle. Hypoglossal nerves were carefully identified and preserved. Umbilical tapes with Rumel tourniquets were placed loosely around each vessel and the patient given 5000 units of heparin. Weitlaner and upper arm retractors were placed. An angled bulldog was placed on the internal carotid artery and the common carotid artery was clamped with a [place]ake[place] angled clamp. The vessels was opened longitudinally using Ramirez scissors. Immediately, an [place] shunt was placed and blood flow reestablished. The patient had a huge plaque occupying most of the internal carotid artery lumen causing to about 80% and length of about an inch and then it tapered off. This was dissected in the medial plane using a [place] dissector and the entire plaque was removed. Debris was removed with heparinized saline flushes, and fine forceps. An 8 x 8 cm bovine patch was chosen. This was sewn in with running 5-0 Prolene. Prior to completion of the arterial repair, the [place] shunt was removed and then blood flow reestablished in usual order and fashion, preventing embolization of the internal carotid artery. The area irrigated with saline. Meticulous hemostasis obtained. A 7 flat BERTHA placed. The patient was given 20 units of protamine. Incision closed with 2-0 Vicryl and 4-0 Monocryl. The patient tolerated the procedure well. At the end of procedure, the patient was neurologically fully intact. MD ANDREW Foley/tenisha/ , 07:22 PM , 07:30 PM
[2018-01-21 02:04] VITALS: RESP 14
[2018-01-21] MEDS: Morphine Inj 4 MG/ML Vial IV.PUSH PRN (02:40)
[2018-01-21] MEDS: Sod Chloride 0.9% Inj 1,000 ML IV.CONT SCH (05:50)
[2018-01-21 06:48] LABS: Baso # (Auto) 0.1 th/mm3 (0.0-0.2); Baso % (Auto) 0.9 % (0.0-2.0); Eos # (Auto) 0.1 th/mm3 (0.0-0.4); Hematocrit 33.3 % (35.0-46.0); Lymph # (Auto) 1.6 th/mm3 (1.0-4.8); Lymph % (Auto) 27.4 % (9.0-44.0); Mean Corpuscular HGB Conc 32.9 % (32.0-36.0); Mean Corpuscular Hemoglobin 29.8 pg (27.0-34.0); Mean Corpuscular Volume 90.6 fL (80.0-100.0); Mean Platelet Volume 8.7 fL (7.0-11.0); Mono # (Auto) 0.5 th/mm3 (0.0-0.9); Neut # (Auto) 3.4 th/mm3 (1.8-7.7); Neut % (Auto) 60.7 % (16.0-70.0); Platelet Count 267 th/mm3 (150-450); Red Blood Count 3.68 mil/mm3 (4.00-5.30); Red Cell Distribution Width 14.1 % (11.6-17.2); White Blood Count 5.7 th/mm3 (4.0-11.0)
[2018-01-21 06:52] LABS: Anion Gap 7 meq/L (5-15); Blood Urea Nitrogen 7 mg/dL (7-18); Calcium 8.4 mg/dL (8.5-10.1); Carbon Dioxide 27.5 meq/L (21.0-32.0); Chloride 103 meq/L (98-107); Glomerular Filtration Rate Greater Than 89 mL/min (>89); Glucose,Random 83 mg/dL (74-106); Potassium 3.7 meq/L (3.5-5.1); Sodium 137 meq/L (136-145)
[2018-01-21] MEDS: Senna/Docusate Sodium 8.6/50 MG Tablet PO SCH (08:02)
[2018-01-21] MEDS: Budesonide-Formoterol 160/4.5 MCG 6 GM Inhaler INH SCH (08:02)
[2018-01-21 08:42] VITALS: BP 128/85; PULSE 84; TEMP 98.1; O2SAT 99
[2018-01-21] MEDS ORDERED: Meloxicam 15 MG Tablet PO SCH (09:00)
--- NOTE | 2018-01-21 09:43 | P.PNVS ---
Subjective Subjective/Hospital Course: 62-year-old lady status post left carotid endarterectomy for about 80% left internal carotid artery stenosis Patient is awake alert oriented Incision is clean and dry Neurologically patient is intact Hemodynamically stable DC patient today Objective Vital Signs / I&O: Vital Signs 01/20/18 12:55 01/20/18 12:56 01/20/18 13:00 Temperature 97.5 F L Pulse Rate 110 H 109 H Respiratory Rate 19 12 Blood Pressure 170/86 H 159/85 H Pulse Oximetry 93 L 98 96 01/20/18 13:15 01/20/18 13:30 01/20/18 13:45 Temperature Pulse Rate 105 H 101 H 95 H Respiratory Rate 6 L 13 17 Blood Pressure 157/81 H 151/78 H 142/73 H Pulse Oximetry 97 96 96 01/20/18 14:00 01/20/18 14:15 01/20/18 14:30 Temperature 97.5 F L Pulse Rate 88 86 84 Respiratory Rate 18 9 L 11 L Blood Pressure 127/71 136/73 134/72 Pulse Oximetry 95 95 98 01/20/18 14:45 01/20/18 14:59 01/20/18 15:00 Temperature Pulse Rate 91 H 85 84 Respiratory Rate 23 18 18 Blood Pressure 103/62 Pulse Oximetry 98 99 98 01/20/18 15:20 01/20/18 15:50 01/20/18 15:55 Temperature Pulse Rate 87 82 Respiratory Rate 23 12 Blood Pressure 97/55 L 105/55 L Pulse Oximetry 94 L 93 L 92 L 01/20/18 16:00 01/20/18 17:04 01/20/18 18:00 Temperature 97.6 F 97.6 F Pulse Rate 80 74 75 Respiratory Rate 19 17 13 Blood Pressure 108/59 L 108/69 Pulse Oximetry 92 L 93 L 91 L 01/20/18 20:00 01/20/18 20:22 01/20/18 21:00 Temperature 97.8 F Pulse Rate 80 76 Respiratory Rate Blood Pressure Pulse Oximetry 95 99 01/20/18 21:25 01/20/18 22:00 01/20/18 22:42 Temperature Pulse Rate 74 81 Respiratory Rate Blood Pressure 136/64 148/67 H Pulse Oximetry 98 100 98 01/20/18 22:43 01/20/18 23:00 01/21/18 00:00 Temperature 97.6 F Pulse Rate 82 75 Respiratory Rate Blood Pressure 127/58 L 109/51 L Pulse Oximetry 98 99 97 01/21/18 01:00 01/21/18 02:00 01/21/18 03:00 Temperature Pulse Rate 83 74 81 Respiratory Rate 14 14 Blood Pressure 115/57 L 109/55 L 120/75 Pulse Oximetry 96 97 92 L 01/21/18 04:00 01/21/18 05:00 01/21/18 05:56 Temperature 98.3 F Pulse Rate 80 84 Respiratory Rate Blood Pressure 115/59 L 159/77 H 150/72 H Pulse Oximetry 98 98 91 L 01/21/18 06:00 01/21/18 07:00 01/21/18 08:00 Temperature 98.1 F Pulse Rate 86 77 85 Respiratory Rate Blood Pressure 142/78 H 132/71 Pulse Oximetry 95 97 98 01/21/18 08:04 Temperature Pulse Rate 84 Respiratory Rate Blood Pressure 128/85 Pulse Oximetry 99 Intake & Output 01/20/18 01/21/18 01/21/18 18:59 06:59 18:59 Intake Total 2360 / 2360 1250 / 1250 Output Total 525 / 525 20 / 20 Balance 1835 / 1835 1230 / 1230 Weight 55.5 kg 59 kg Intake: IV 1250 / 1250 NS Inj 1,000 ML @ 60 mls/hr IV. 1000 / 1000 CONT .[id number] [facility] Rx#:[id number] Ofirmev Inj 1,000 mg In 100 ml 200 / 200 @ 400 mls/hr IV.SIG Q6H PRN Rx# :[id number] Oral 360 / 360 Anesthesia Amount 1999 / 1999 Output: Urine 450 / 450 Estimated Blood Loss 25 / 25 Wound Drainage 50 / 50 20 / 20 Left Neck BERTHA Drain 50 / 50 20 / 20 Other: # Voids 2 5 Weight On Admission 55.5 kg Laboratory Results - last 24 hr 01/21/18 01/21/18 05:03 05:03 WBC 5.7 RBC 3.68 L Hgb 11.0 L Hct 33.3 L MCV 90.6 MCH 29.8 MCHC 32.9 RDW 14.1 Plt Count 267 MPV 8.7 Neut % (Auto) 60.7 Lymph % (Auto) 27.4 [place] % (Auto) 9.0 H Eos % (Auto) 2.0 Baso % (Auto) 0.9 Neut # (Auto) 3.4 Lymph # (Auto) 1.6 [place] # (Auto) 0.5 Eos # (Auto) 0.1 Baso # (Auto) 0.1 WBC Differential . Differential Comment Auto diff final Sodium 137 Potassium 3.7 Chloride 103 Carbon Dioxide 27.5 Anion Gap 7 BUN 7 Creatinine 0.61 Estimated GFR Greater than 89 Random Glucose 83 Calcium 8.4 L Impressions Chest X-Ray 01/20/18 00:00 CONCLUSION: 1. Stable scattered emphysematous changes. 2. No acute focal infiltrate or pulmonary vascular congestion. 3. Mild degenerative changes and scoliosis of the thoracic spine.
== END 2018-01-21 12:49 | disposition home or self-care (01) | DRG 39 ==
LOC: HSDI 08:01 → EDSTATUS 12:00 → N03 16:09
PROVIDERS: ADMIT Surgery; ATTEND Surgery
CPT/HCPCS: 71010; 71045; 80048; 80053; 85025; 85610; 86850; 86900; 86901; 86923; 88304; 88305; 88311; C1713; C1768; J0131; J0690; J1644; J2250; J2270; J2370; J2704; J2710; J2720; J3010; J7030; J7120